=== PATIENT | female | born 1940 | race Caucasian/White ===

== ENCOUNTER 2016-12-24 16:22 | Observation (INO) | payer MEDICARE ==
[~2016-12-24] VITALS: Ht 157.5 cm; Wt 48.0 kg
[2016-12-24] VITALS (8 sets, daily range): BP systolic 97–169; BP diastolic 54–80; PULSE 90–148; RESP 12–22; TEMP 97–97.4; O2SAT 95–99
[~2016-12-24 16:22] MED LIST: ALEN70TA39 OR; ATOR10TA PO; BUPR-86 PO; DEXA2TAB10 PO; MULT1TAB; OMEP20TA PO; PERC10TA27 PO; TRAZ50TA78 PO; VENTAER INH; ZYRT10TA12 PO
[2016-12-24] MEDS ORDERED: SODIUM CHLOR 0.9% 1000 ML INJ 1,000 ML IV ONE (17:15)
[2016-12-24] MEDS ORDERED: DILTIAZEM HCL 25 MG/5 ML VIAL IV ONE (17:15)
[2016-12-24] MEDS ORDERED: SODIUM CHLORIDE 0.9% FLUSH 5 ML FLUSH IVF PRN (17:15)
[2016-12-24] MEDS ORDERED: TRAZ150T75 PO (17:32)
[2016-12-24] MEDS ORDERED: BUPR150XL PO (17:32)
[2016-12-24] MEDS ORDERED: OMEP20TA PO (17:32)
[2016-12-24] MEDS ORDERED: HYDR-3533 PO (17:32)
[2016-12-24 17:38] LABS: AUTOMATED NEUTROPHIL # 3.7 TH/MM3 (1.8-7.7); BASOPHIL % 0.2 % (0.0-2.0); EOSINOPHIL % 0.6 % (0.0-4.0); HEMO FLAGS DIFF FINAL; LYMPHOCYTE # 1.5 TH/MM3 (1.0-4.8); MEAN CELL VOLUME 97.8 FL (80.0-100.0); MEAN CORPUSCULAR HEMOGLOBIN 32.8 PG (27.0-34.0); MEAN CORPUSCULAR HGB CONC 33.6 % (32.0-36.0); MONO % 3.4 % (0.0-8.0); NEUT % 67.8 % (16.0-70.0); PLATELET COUNT 212 TH/MM3 (150-450); RED BLOOD COUNT 3.78 MIL/MM3 (4.00-5.30); RED CELL DISTRIBUTION WIDTH 17.3 % (11.6-17.2); WHITE BLOOD COUNT 5.5 TH/MM3 (4.0-11.0)
[2016-12-24 17:45] LABS: APTT (PATIENT) 27.2 SEC (24.3-30.1); PROTHROMBIN TIME - PATIENT 10.7 SEC (9.8-11.6)
[2016-12-24] MEDS ORDERED: IOHEXOL 350 MG/ML 10 ML VIAL (for RAD DIAG) IV ONE (17:55)
[2016-12-24 18:01] LABS: ANION GAP 12 MEQ/L (5-15); AST (GOT) 38 U/L (15-37); BICARBONATE 23.4 MEQ/L (21.0-32.0); BLOOD UREA NITROGEN 12 MG/DL (7-18); CHLORIDE 103 MEQ/L (98-107); GLOMERULAR FILTRATION RATE 83 ML/MIN (>89); MAGNESIUM 2.2 MG/DL (1.5-2.5); POTASSIUM 3.2 MEQ/L (3.5-5.1); SODIUM (NA) 138 MEQ/L (136-145)
[2016-12-24 18:11] LABS: ALKALINE PHOSPHATASE 359 U/L (45-117); ALT (GPT) 41 U/L (10-53); TOTAL BILIRUBIN ADULT 0.4 MG/DL (0.2-1.0)
[2016-12-24 18:14] LABS: CREATINE KINASE 61 U/L (26-192)
--- NOTE | 2016-12-24 18:16 | RADRPT ---
EXAM DATE/TIME: 12/24/2016 17:27 [facility] COMPARISON: CT PULMONARY ANGIOGRAM, December 24, 2016, 17:57. INDICATIONS : Irregular heart rate starting today MEDICAL HISTORY : None. SURGICAL HISTORY : None. ENCOUNTER: Initial ACUITY: 1 day PAIN SCORE: 0/10 LOCATION: Bilateral chest FINDINGS: The cardiac silhouette is enlarged in transverse diameter. The lungs are free of acute parenchymal op acity. No effusions are identified. [id number] is in place via right internal jugular approach wit h its tip in the superior vena cava. There is diffuse osseous sclerosis characteristic of metastatic disease. CONCLUSION: 1. Cardiomegaly. No acute pulmonary disease. 2. Diffuse osteosclerotic metastasis Logan Eng MD on December 24, 2016 at 18:10 Board Certified Radiologist. This report was verified electronically.
--- NOTE | 2016-12-24 18:24 | RADRPT ---
EXAM DATE/TIME: 12/24/2016 17:57 [facility] COMPARISON: CHEST PA & LAT, December 24, 2016, 17:27. INDICATIONS : Shortness of breath and chest pain. IV CONTRAST: 75 cc Omnipaque 350 (iohexol) IV RADIATION DOSE: 19.99 CTDIvol (mGy) MEDICAL HISTORY : Chronic obstructive pulmonary disease. Carcinoma, bone. SURGICAL HISTORY : Right-sided port-a-cath placement. ENCOUNTER: Initial ACUITY: 1 day PAIN SCALE: 5/10 LOCATION: chest TECHNIQUE: Volumetric scanning of the chest was performed using a pulmonary embolism protocol MIP images were re constructed. Using automated exposure control and adjustment of the mA and/or kV according to patien t size, radiation dose was kept as low as reasonably achievable to obtain optimal diagnostic quality images. FINDINGS: There is no evidence for PE for technique.There is 1.6 cm soft tissue density in the right cardiophre connor angle appears to be extrapleural in the epicardial fat. There are scattered areas of scarring in the lungs with a subcentimeter nodular density in the right lower lung anteromedially probably chroni c as scar as well. There is no pleural effusion. No appreciable pathological adenopathy is seen with in the mediastinum. CONCLUSION: Soft tissue density in the right cardiophrenic angle and tiny nodule right lower lobe most likely benign, however follow up is suggested with noncontrast chest CT in 6 months. Robert June MD on December 24, 2016 at 18:19 Board Certified Radiologist. This report was verified electronically.
[2016-12-24] MEDS ORDERED: ONDANSETRON HCL 4 MG/2 ML VIAL IVP PRN (19:00)
[2016-12-24] MEDS ORDERED: SENNOSIDES 8.6 MG TAB PO PRN (19:00)
[2016-12-24] MEDS ORDERED: SODIUM CHLORIDE 0.9% FLUSH 5 ML FLUSH FLUSH PRN (19:00)
[2016-12-24] MEDS ORDERED: TEMAZEPAM 15 MG CAP PO PRN (19:00)
[2016-12-24] MEDS ORDERED: BISACODYL 10 MG SUPP PR PRN (19:00)
[2016-12-24] MEDS ORDERED: MAGNESIUM HYDROXIDE SUSP 30 ML CUP PO PRN (19:00)
[2016-12-24] MEDS ORDERED: NALOXONE HCL 0.4 MG/ML AMP IV PRN (19:00)
[2016-12-24] MEDS ORDERED: ACETAMINOPHEN 325 MG TAB PO PRN (19:00)
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
[2016-12-24] MEDS ORDERED: PILL SPLITTER OTHER PRN (19:30)
[2016-12-24] MEDS ORDERED: ENOXAPARIN SODIUM 40 MG/0.4 ML SYRINGE SQ SCH (20:00)
[2016-12-24] MEDS: SODIUM CHLOR 0.9% 1000 ML INJ 1,000 ML IV SCH (20:03)
[2016-12-24] MEDS: DILTIAZEM HCL 60 MG TAB PO SCH (20:09)
[2016-12-24] MEDS: POTASSIUM CHLORIDE 10 MEQ CONTROLLED RELEASE TAB PO SCH (20:09)
[2016-12-24] MEDS: SODIUM CHLORIDE 0.9% FLUSH 5 ML FLUSH FLUSH SCH (20:09)
--- NOTE | 2016-12-24 20:14 | PD ---
HPI Chief Complaint: Cardiac Complaint Time Seen by Provider: 16:38 Travel History International Travel<30 days: No Contact w/Intl Traveler<30days: No Traveled to known affect area: No History of Present Illness HPI Patient is a 76-year-old female who is coming from her oncologist due to rapid heart rate. She says she has not had any issues with her heart in the past. She is currently being treated for metastatic bladder cancer. She said she went for a routine visit to discuss radiation of her hip when it was noticed that her heart was beating very quickly. She says she has no symptoms. She denies any chest pain, shortness of breath. She denies any fever or chills. She says she has been eating and drinking well. Her last chemotherapy was on Tuesday. PFSH Past Medical History Arthritis: Yes Depression: Yes Cancer: Yes (STAGE 4 BONE CA) Chemotherapy: Yes (Tuesday12/20/16) COPD: Yes Diabetes: No Diminished Hearing: Yes Endocrine: No Gastrointestinal Disorders: Yes (COLITIS, POLYP REMOVAL) Hepatitis: No Immune Disorder: No Musculoskeletal: No Neurologic: No Respiratory: No Thyroid Disease: No Menopausal: Yes : 3 Para: 2 Miscarriage: 1 Past Surgical History Appendectomy: Yes Eye Surgery: Yes (LASIK) Joint Replacement: No Pacemaker: No Tonsillectomy: Yes Other Surgery: Yes (FOOT SURG, BLADDER BIOPSY, RIGHT CHEST PORT PLACED) Social History Alcohol Use: No Tobacco Use: No Substance Use: No Allergies-Medications (Allergen,Severity, Reaction): Coded Allergies: Penicillin (Verified Allergy, Mild, 12/24/16) Reported Meds & Prescriptions Reported Meds & Active Scripts Active Reported Omeprazole 20 Mg Tab 20 Mg PO DAILY Trazodone (Trazodone HCl) 150 Mg Tab 150 Mg PO HS Wellbutrin Xl 24 HR (Bupropion HCl) 150 Mg Tab 150 Mg PO DAILY Lortab (Hydrocodone-Acetaminophen) 5-325 Mg Tab 1 Tab PO QID Review of Systems Except as stated in HPI: all other systems reviewed are Neg General / Constitutional: No: Fever, Chills Eyes: No: Blurred Vision HENT: No: Headaches, Lightheadedness Cardiovascular: Positive: Palpitations, No: Chest Pain or Discomfort Respiratory: No: Shortness of Breath Gastrointestinal: No: Nausea, Vomiting Musculoskeletal: No: Myalgias, Edema Skin: No Rash, No Change in Pigmentation Neurologic: No: Weakness, Dizziness Physical Exam Narrative GENERAL: Awake and alert in no acute distress. SKIN: Warm and dry. HEAD: Atraumatic. Normocephalic. EYES: Pupils equal and round. No scleral icterus. ENT: Mucous membranes pink and moist. NECK: Trachea midline. No JVD. CARDIOVASCULAR: Tachycardia. No murmur appreciated. RESPIRATORY: No accessory muscle use. Clear to auscultation. Breath sounds equal bilaterally. GASTROINTESTINAL: Abdomen soft, non-tender, nondistended. MUSCULOSKELETAL: No obvious deformities. No clubbing. No cyanosis. No edema. NEUROLOGICAL: Awake and alert. No obvious cranial nerve deficits. Motor grossly within normal limits. Normal speech. PSYCHIATRIC: Appropriate mood and affect; insight and judgment normal. Data Data Last Documented VS Vital Signs Date Time Temp Pulse Resp B/P Pulse Ox O2 Delivery O2 Flow Rate FiO2 12/24/16 18:00 96 20 113/63 98 Nasal Cannula 2.0 12/24/16 16:24 97.4 Orders Electrocardiogram (12/24/16 ) Ckmb (Isoenzyme) Profile (12/24/16 17:05) Complete Blood Count With Diff (12/24/16 17:05) Comprehensive Metabolic Panel (12/24/16 17:05) Magnesium (Mg) (12/24/16 17:05) Prothrombin Time / Inr (Pt) (12/24/16 17:05) Act Partial Throm Time (Ptt) (12/24/16 17:05) Troponin I (12/24/16 17:05) Ecg Monitoring (12/24/16 17:05) Bilateral Bp Monitoring (12/24/16 17:05) Iv Access Insert/Monitor (12/24/16 17:05) Oximetry (12/24/16 17:05) Oxygen Administration (12/24/16 17:05) Sodium Chloride 0.9% Flush (Ns Flush) (12/24/16 17:15) Chest, Pa & Lat (12/24/16 17:05) Thyroid Stimulating Hormone (12/24/16 17:05) Ct Pulmonary Angiogram (12/24/16 17:05) Sodium Chlor 0.9% 1000 Ml Inj (Ns 1000 M (12/24/16 17:15) Diltiazem Inj (Cardizem Inj) (12/24/16 17:15) Iohexol 350 Inj (Omnipaque 350 Inj) (12/24/16 17:55) Electrocardiogram (12/24/16 ) Electrocardiogram (12/24/16 16:51) Admit Order (Ed Use Only) (12/24/16 ) Labs Laboratory Tests Test 12/24/16 16:57 White Blood Count 5.5 TH/MM3 Red Blood Count 3.78 MIL/MM3 Hemoglobin 12.4 GM/DL Hematocrit 37.0 % Mean Corpuscular Volume 97.8 FL Mean Corpuscular Hemoglobin 32.8 PG Mean Corpuscular Hemoglobin 33.6 % Concent Red Cell Distribution Width 17.3 % Platelet Count 212 TH/MM3 Mean Platelet Volume 7.6 FL Neutrophils (%) (Auto) 67.8 % Lymphocytes (%) (Auto) 28.0 % Monocytes (%) (Auto) 3.4 % Eosinophils (%) (Auto) 0.6 % Basophils (%) (Auto) 0.2 % Neutrophils # (Auto) 3.7 TH/MM3 Lymphocytes # (Auto) 1.5 TH/MM3 Monocytes # (Auto) 0.2 TH/MM3 Eosinophils # (Auto) 0.0 TH/MM3 Basophils # (Auto) 0.0 TH/MM3 CBC Comment DIFF FINAL Differential Comment Prothrombin Time 10.7 SEC Prothromb Time International 1.0 RATIO Ratio Activated Partial 27.2 SEC Thromboplast Time Sodium Level 138 MEQ/L Potassium Level 3.2 MEQ/L Chloride Level 103 MEQ/L Carbon Dioxide Level 23.4 MEQ/L Anion Gap 12 MEQ/L Blood Urea Nitrogen 12 MG/DL Creatinine 0.69 MG/DL Estimat Glomerular Filtration 83 ML/MIN Rate Random Glucose 95 MG/DL Calcium Level 7.9 MG/DL Magnesium Level 2.2 MG/DL Total Bilirubin 0.4 MG/DL Aspartate Amino Transf 38 U/L (AST/SGOT) Alanine Aminotransferase 41 U/L (ALT/SGPT) Alkaline Phosphatase 359 U/L Total Creatine Kinase 61 U/L Troponin I LESS THAN 0.02 NG/ML Total Protein 7.4 GM/DL Albumin 3.3 GM/DL Thyroid Stimulating Hormone 3.240 uIU/ML 3rd Gen [facility] Medical Decision Making Medical Screen Exam Complete: Yes Emergency Medical Condition: Yes Medical Record Reviewed: Yes Interpretation(s) Original ECG showed sinus tachycardia at 109 with frequent PVCs. Shortly after , patient's heart rate increased, ECG showed a flutter with RVR. After Cardizem, patient's ECG return to sinus rhythm at a controlled rate. Differential Diagnosis Dehydration versus sepsis versus electrolyte abnormality versus PE versus atrial fibrillation Narrative Course Patient is a 76-year-old female who comes in due to rapid heart rate. Exam shows tachycardia. IV established, patient connected to the nurse monitoring. Originally patient was in sinus tach, however she quickly went into atrial flutter with RVR. Patient given IV fluids as well as 15 mg bolus of Cardizem. Her heart rate improved after medications. Labs sent show no acute abnormalities. CT of the chest shows no evidence of PE. There is a nodule noted. Patient again went into a flutter with a pulse rate in the 120s, however she quickly converted back to sinus rhythm under 100. I spoke with Dr. Boateng who will take the patient in observation for further management. Diagnosis Primary Impression: Atrial flutter with rapid ventricular response Admitting Information Admitting Physician Requests: Observation Nikia Horta MD Dec 24, 2016 20:14
[2016-12-24] MEDS ORDERED: traZODone HCL 100 MG TAB PO SCH (21:00)
[2016-12-24] MEDS ORDERED: ACETAMINOPHEN/HYDROcodone 325 MG/5 MG TAB PO SCH (21:00)
[2016-12-24 21:53] LABS: MAGNESIUM 2.2 MG/DL (1.5-2.5)
[2016-12-24 23:22] LABS: CREATINE KINASE 42 U/L (26-192)
[2016-12-25] VITALS: PULSE 90
[2016-12-25 02:47] LABS: CREATINE KINASE 46 U/L (26-192)
[2016-12-25 04:00] VITALS: BP 106/61; PULSE 94; RESP 16; TEMP 97.7; O2SAT 96
[2016-12-25] MEDS: SODIUM CHLOR 0.9% 1000 ML INJ 1,000 ML IV SCH (04:55)
[2016-12-25] MEDS: ACETAMINOPHEN/HYDROcodone 325 MG/5 MG TAB PO PRN ×2 (06:36→12:50)
[2016-12-25 08:00] VITALS: BP 115/56; PULSE 88; RESP 18; TEMP 97; O2SAT 97
[2016-12-25] MEDS ORDERED: buPROPion HCL 150 MG SUSTAINED RELEASE TAB PO SCH (09:00)
[2016-12-25] MEDS ORDERED: PANTOPRAZOLE SOD 20 MG DELAYED RELEASE TAB PO SCH (09:00)
[2016-12-25] MEDS: DILTIAZEM HCL 60 MG TAB PO SCH ×2 (09:02→12:49)
[2016-12-25] MEDS: POTASSIUM CHLORIDE 10 MEQ CONTROLLED RELEASE TAB PO SCH (09:04)
[2016-12-25] MEDS: SODIUM CHLORIDE 0.9% FLUSH 5 ML FLUSH FLUSH SCH (09:04)
[2016-12-25 09:13] VITALS: PULSE 88
[2016-12-25 10:07] LABS: AUTOMATED NEUTROPHIL # 1.9 TH/MM3 (1.8-7.7); BASOPHIL % 0.6 % (0.0-2.0); EOSINOPHIL % 0.8 % (0.0-4.0); HEMATOCRIT 30.2 % (35.0-46.0); HEMO FLAGS DIFF FINAL; LYMPH % 32.6 % (9.0-44.0); MEAN CELL VOLUME 96.5 FL (80.0-100.0); MEAN CORPUSCULAR HEMOGLOBIN 33.5 PG (27.0-34.0); MEAN CORPUSCULAR HGB CONC 34.7 % (32.0-36.0); MONO % 3.3 % (0.0-8.0); NEUT % 62.7 % (16.0-70.0); PLATELET COUNT 136 TH/MM3 (150-450); RED BLOOD COUNT 3.13 MIL/MM3 (4.00-5.30); RED CELL DISTRIBUTION WIDTH 16.8 % (11.6-17.2)
[2016-12-25 10:15] LABS: BICARBONATE 23.8 MEQ/L (21.0-32.0); HDL CHOLESTEROL 72.8 MG/DL (40.0-60.0); POTASSIUM 3.2 MEQ/L (3.5-5.1)
[2016-12-25 10:47] LABS: CALCIUM-PROTEIN CORRECTED 7.3 MG/DL (8.5-10.1)
[2016-12-25 12:00] VITALS: BP 117/55; PULSE 90; RESP 18; TEMP 98; O2SAT 97
[2016-12-25] MEDS ORDERED: CALCIUM GLUCONATE INJ 1 GM in SODIUM CHLORIDE 0.9% INJ 100 ML IV ONE (13:00)
[2016-12-25] MEDS ORDERED: DILTIAZEM-CD 240 MG CAP ER PO SCH (15:00)
[2016-12-25] MEDS ORDERED: CARD240C6 PO (15:01)
[2016-12-25] MEDS ORDERED: ASPI81TA11 PO (15:01)
[2016-12-25] MEDS ORDERED: POTA-243 PO (15:01)
[2016-12-25 15:29] VITALS: PULSE 108
--- NOTE | 2016-12-25 19:05 | HHI.PR ---
Subjective Interval History Alert, oriented, denies any complaints, wants to go home, insisting on going home regardless of any further workup, ambulating around the steinberg with heart rate hovering around 100-110 Review of Systems Constitutional Constitutional Remarks 10 systems reviewed and otherwise negative Vitals/Results Intake & Output 12/24/16 12/24/16 12/25/16 15:00 23:00 07:00 Intake Total 1240 ml Balance 1240 ml Intake Oral 240 ml IV Total 1000 ml # Voids 1 Vital Signs Vital Signs Date Time Temp Pulse Resp B/P Pulse Ox O2 Delivery O2 Flow Rate FiO2 12/25/16 15:29 108 12/25/16 12:00 98.0 90 18 117/55 97 12/25/16 09:13 88 12/25/16 08:00 97.0 88 18 115/56 97 12/25/16 04:00 97.7 94 16 106/61 96 12/25/16 00:00 90 12/24/16 23:00 97.0 99 18 118/65 95 12/24/16 22:26 18 12/24/16 22:21 90 18 97/54 99 CBC/BMP: 12/25/16 0846 12/25/16 0846 Lab Results Laboratory Tests Test 12/24/16 12/24/16 12/25/16 12/25/16 19:50 21:37 01:00 08:46 Phosphorus Level 1.8 MG/DL Magnesium Level 2.2 MG/DL Total Creatine Kinase 42 U/L 46 U/L Troponin I LESS THAN 0.02 LESS THAN 0.02 NG/ML NG/ML White Blood Count 3.0 TH/MM3 Red Blood Count 3.13 MIL/MM3 Hemoglobin 10.5 GM/DL Hematocrit 30.2 % Mean Corpuscular Volume 96.5 FL Mean Corpuscular Hemoglobin 33.5 PG Mean Corpuscular Hemoglobin 34.7 % Concent Red Cell Distribution Width 16.8 % Platelet Count 136 TH/MM3 Mean Platelet Volume 7.5 FL Neutrophils (%) (Auto) 62.7 % Lymphocytes (%) (Auto) 32.6 % Monocytes (%) (Auto) 3.3 % Eosinophils (%) (Auto) 0.8 % Basophils (%) (Auto) 0.6 % Neutrophils # (Auto) 1.9 TH/MM3 Lymphocytes # (Auto) 1.0 TH/MM3 Monocytes # (Auto) 0.1 TH/MM3 Eosinophils # (Auto) 0.0 TH/MM3 Basophils # (Auto) 0.0 TH/MM3 CBC Comment DIFF FINAL Differential Comment Sodium Level 140 MEQ/L Potassium Level 3.2 MEQ/L Chloride Level 108 MEQ/L Carbon Dioxide Level 23.8 MEQ/L Anion Gap 8 MEQ/L Blood Urea Nitrogen 5 MG/DL Creatinine 0.43 MG/DL Estimat Glomerular Filtration 144 ML/MIN Rate Random Glucose 100 MG/DL Calcium Level 6.9 MG/DL Protein Corrected Calcium 7.3 MG/DL Total Protein 6.4 GM/DL Triglycerides Level 103 MG/DL Cholesterol Level 201 MG/DL LDL Cholesterol 108 MG/DL HDL Cholesterol 72.8 MG/DL Cholesterol/HDL Ratio 2.76 RATIO Physical Exam General General Appearance: Well Developed, No Acute Distress, Comfortable, Malnourished Eyes Eye Exam: Pupils Reactive Ears & Nose Ears & Nose Exam: Nasal Mucosa [place] Throat Throat Exam: Oral Mucosa [place] & Moist Neck Neck Exam: Trachea Midline Pulmonary Resp Exam: Breath Sounds Equal Cardiology CV Exam: Irregular Gastrointestinal/Abdomen GI Exam: Non-Tender, Bowel Sounds Present Musculoskeletal MS Exam: Normal Gait, Normal Tone Integumentary Skin Exam: Warm, Dry Neurologic Neuro Exam: Awake, Oriented, Speech Clear, Moving All Extremities VTE Prophylaxis VTE Prophylaxis Meds: Heparin Assessment/Plan Assessment/Plan Assessment Narrow complex tachycardia, improved Hypokalemia, improved Metastatic bladder cancer On radiation therapy Question COPD Right lower lobe nodule Diffuse osteosclerotic bone metastases Cardiomegaly Management Cardizem extended release 240 mg daily Okay to discharge home Outpatient 2-dimensional echocardiogram Consult cardiology as outpatient Continue home medications Discussed with patient Discussed with nurse Discharge Minutes: 40 Jeff Mcdonald MD Dec 25, 2016 19:05
--- NOTE | 2016-12-26 12:17 | EKG ---
Date Performed: 12/24/2016 Time Performed: 16:36:58 PTAGE: 76 years EKG: SINUS TACHYCARDIA WITH OCCASIONAL SUPRAVENTRICULAR PREMATURE COMPLEXES When compared to pre vious tracing, occassional premature atrial And ventricular contractions are seen. ABNORMAL RHYTHM EC G PREVIOUS TRACING : 04/06/2010 18.10 DOCTOR: Sam Huizar Interpretating Date/Time 12/26/2016 12:16:41
--- NOTE | 2016-12-26 12:19 | EKG ---
Date Performed: 12/24/2016 Time Performed: 16:51:27 PTAGE: 76 years EKG: ATRIAL FLUTTER/TACHYCARDIA WITH RAPID VENTRICULAR RESPONSE When compared to previous tracin g, there is now evidence of a Supraventricular tachycardia, most likely atrial flutter with 2:1 Heart block. ABNORMAL RHYTHM ECG PREVIOUS TRACING : 12/24/2016 16.36 DOCTOR: Sam Huizar Interpretating Date/Time 12/26/2016 12:18:47
--- NOTE | 2016-12-26 12:22 | EKG ---
Date Performed: 12/24/2016 Time Performed: 18:30:03 PTAGE: 76 years EKG: SINUS TACHYCARDIA When compared to previous tracing, the supraventricular Tachycardia is no longer present. ABNORMAL RHYTHM ECG PREVIOUS TRACING : 12/24/2016 16.51.27 DOCTOR: Sam Huizar Interpretating Date/Time 12/26/2016 12:21:38
--- NOTE | 2016-12-26 12:25 | EKG ---
Date Performed: 12/24/2016 Time Performed: 20:18:34 PTAGE: 76 years EKG: SINUS TACHYCARDIA When compared to previous tracing, there is now evidence a Supraventricul ar tachycardia verses sinus tachycardia. Clinical correlation is recommended. ABNORMAL RHYTHM ECGPREV IOUS TRACING : 12/24/2016 18.30 DOCTOR: Sam Huizar Interpretating Date/Time 12/26/2016 12:23:05
== END 2016-12-25 17:14 | disposition home or self-care (01) ==
LOC: NEPC 16:22 → NEDA 18:56 → HOCB 23:25
PROVIDERS: ADMIT Specialist; ATTEND Specialist
DX: I48.92 Unspecified atrial flutter (principal); I51.7 Cardiomegaly; C79.51 Secondary malignant neoplasm of bone; C67.9 Malignant neoplasm of bladder, unspecified; E87.6 Hypokalemia; E78.5 Hyperlipidemia, unspecified; J44.9 Chronic obstructive pulmonary disease, unspecified; H91.90 Unspecified hearing loss, unspecified ear; Z79.01 Long term (current) use of anticoagulants
CPT/HCPCS: 71020; 71275; 80048; 80053; 80061; 82550; 83735; 84100; 84155; 84443; 84484; 85025; 85610; 85730; 93005; 96361; 96374; 99285; G0378; J0610; J1650; J7030; Q9967; 99212; G0463

== ENCOUNTER 2017-02-02 10:28 | Emergency (ER) | payer MEDICARE ==
[~2017-02-02] VITALS: Ht 149.9 cm; Wt 42.0 kg
[~2017-02-02 10:28] MED LIST changes: -ALEN70TA39 OR; +ASPI81TA11 PO; -ATOR10TA PO; -BUPR-86 PO; +BUPR150XL PO; +CARD240C6 PO; -DEXA2TAB10 PO; +HYDR-3533 PO; -MULT1TAB; -PERC10TA27 PO; +POTA-243 PO; +TRAZ150T75 PO; -TRAZ50TA78 PO; -VENTAER INH; -ZYRT10TA12 PO
[2017-02-02 10:30] VITALS: BP 105/61; PULSE 98; RESP 18; TEMP 98.4; O2SAT 93
[2017-02-02 10:36] VITALS: BP_SYST 105; PULSE 100; RESP 18; O2SAT 96
[2017-02-02] MEDS ORDERED: METO25TA6 PO (10:43)
[2017-02-02] MEDS ORDERED: SODIUM CHLOR 0.9% 1000 ML INJ 1,000 ML IV SCH (11:01)
[2017-02-02] MEDS ORDERED: SODIUM CHLORIDE 0.9% FLUSH 5 ML FLUSH IVF PRN (11:15)
--- NOTE | 2017-02-02 11:31 | PD ---
HPI Chief Complaint: Respiratory Distress Time Seen by Provider: 10:48 Travel History International Travel<30 days: No Contact w/Intl Traveler<30days: No Traveled to known affect area: No History of Present Illness HPI The patient is a 76-year-old female who presents to the emergency department for generalized weakness. The patient has a history of stage IV bladder cancer and is currently undergoing radiation therapy by Dr. vergara. The patient is undergone 9 out of 10 days of radiation therapy, however, was too weak to go to treatment today. The patient also states she was followed by her oncologist, Dr. Burt, and had chemotherapy several weeks ago. The patient states she was going to be restarted on chemotherapy a week from Tuesday. The patient states she lives at home with her who helps microwave meals and also has a neighbor who helps bring meals, however, the patient is had decreased mobility and was unable to get out of bed into the bathroom this morning. She does note a 10 pound weight loss over the last month with increasing generalized weakness. She also complains of mild shortness of breath and nausea, but denies any chest pain, vomiting, or abdominal pain. Symptoms are moderate, there are no current alleviating or exacerbating factors. PFSH Past Medical History Arthritis: Yes Depression: Yes Cancer: Yes (STAGE 4 BONE CA) Chemotherapy: Yes (2 WEEKS AGO ) COPD: Yes Diabetes: No Diminished Hearing: Yes Endocrine: No Gastrointestinal Disorders: Yes (COLITIS, POLYP REMOVAL) Hepatitis: No Immune Disorder: No Neurologic: No Psychiatric: No Respiratory: No Radiation Therapy: Yes (radiation july 2016, ) Thyroid Disease: No Menopausal: Yes : 3 Para: 2 Miscarriage: 1 Past Surgical History Appendectomy: Yes Eye Surgery: Yes (LASIK) Joint Replacement: No Pacemaker: No Tonsillectomy: Yes Other Surgery: Yes (FOOT SURG, BLADDER BIOPSY, RIGHT CHEST PORT PLACED) Social History Alcohol Use: No Tobacco Use: No Substance Use: No Allergies-Medications (Allergen,Severity, Reaction): Coded Allergies: Penicillin (Verified Allergy, Mild, 02/02/17) Reported Meds & Prescriptions Reported Meds & Active Scripts Active Aspirin EC (Aspirin) 81 Mg Tabdr 81 Mg PO DAILY Reported Metoprolol Succinate ER 24 HR (Metoprolol Succinate) 25 Mg Tab Unknown Dose PO DAILY Trazodone (Trazodone HCl) 150 Mg Tab 150 Mg PO HS Wellbutrin Xl 24 HR (Bupropion HCl) 150 Mg Tab 150 Mg PO DAILY Lortab (Hydrocodone-Acetaminophen) 5-325 Mg Tab 1 Tab PO QID Review of Systems Except as stated in HPI: all other systems reviewed are Neg General / Constitutional: Positive: Weight Loss, No: Fever Cardiovascular: No: Chest Pain or Discomfort Respiratory: Positive: Shortness of Breath Gastrointestinal: Positive: Nausea, Loss of Appetite, No: Vomiting, Diarrhea, Abdominal Pain Musculoskeletal: Positive: Weakness Neurologic: Positive: Weakness Physical Exam Narrative GENERAL: Awake, alert, 76-year-old female who appears her stated age and is slightly cachectic. SKIN: Warm and dry. HEAD: Atraumatic. Normocephalic. EYES: Pupils equal and round. No injection or drainage. ENT: No nasal bleeding or discharge. Slightly dry mucous membranes. NECK: Trachea midline. No JVD. CARDIOVASCULAR: Regular, tachycardic with a heart rate of 102. RESPIRATORY: No accessory muscle use. Clear to auscultation. Breath sounds equal bilaterally. GASTROINTESTINAL: Abdomen soft, radiation markers noted on the abdomen. MUSCULOSKELETAL: No obvious deformities. No clubbing. No cyanosis. No edema. NEUROLOGICAL: Awake and alert. No obvious cranial nerve deficits. Motor grossly within normal limits. Normal speech. PSYCHIATRIC: Appropriate mood and affect; insight and judgment normal. Data Data Last Documented VS Vital Signs Date Time Temp Pulse Resp B/P Pulse Ox O2 Delivery O2 Flow Rate FiO2 02/02/17 10:36 100 18 105/ 96 Nasal Cannula 02/02/17 10:30 98.4 Orders Complete Blood Count With Diff (02/02/17 11:01) Comprehensive Metabolic Panel (02/02/17 11:01) Creatine Kinase (Cpk) (02/02/17 11:01) Thyroid Stimulating Hormone (02/02/17 11:01) Urinalysis - C+S If Indicated (02/02/17 11:01) Chest, Single Ap (02/02/17 11:01) Blood Glucose (02/02/17 11:01) Ecg Monitoring (02/02/17 11:01) Iv Access Insert/Monitor (02/02/17 11:01) Oximetry (02/02/17 11:01) Sodium Chloride 0.9% Flush (Ns Flush) (02/02/17 11:15) Sodium Chlor 0.9% 1000 Ml Inj (Ns 1000 M (02/02/17 11:01) Urine Culture (02/02/17 11:39) Labs Laboratory Tests Test 02/02/17 02/02/17 11:25 11:39 White Blood Count 6.4 TH/MM3 Red Blood Count 3.21 MIL/MM3 Hemoglobin 10.3 GM/DL Hematocrit 30.1 % Mean Corpuscular Volume 93.8 FL Mean Corpuscular Hemoglobin 32.1 PG Mean Corpuscular Hemoglobin 34.2 % Concent Red Cell Distribution Width 19.0 % Platelet Count 79 TH/MM3 Mean Platelet Volume 8.4 FL Neutrophils (%) (Auto) 77.1 % Lymphocytes (%) (Auto) 14.4 % Monocytes (%) (Auto) 7.7 % Eosinophils (%) (Auto) 0.4 % Basophils (%) (Auto) 0.4 % Neutrophils # (Auto) 5.0 TH/MM3 Lymphocytes # (Auto) 0.9 TH/MM3 Monocytes # (Auto) 0.5 TH/MM3 Eosinophils # (Auto) 0.0 TH/MM3 Basophils # (Auto) 0.0 TH/MM3 CBC Comment AUTO DIFF Differential Comment AUTO DIFF CONFIRMED Platelet Estimate LOW Platelet Morphology Comment NORMAL Sodium Level 138 MEQ/L Potassium Level 3.6 MEQ/L Chloride Level 105 MEQ/L Carbon Dioxide Level 22.3 MEQ/L Anion Gap 11 MEQ/L Blood Urea Nitrogen 9 MG/DL Creatinine 0.65 MG/DL Estimat Glomerular Filtration 89 ML/MIN Rate Random Glucose 143 MG/DL Calcium Level 7.9 MG/DL Total Bilirubin 0.4 MG/DL Aspartate Amino Transf 51 U/L (AST/SGOT) Alanine Aminotransferase 19 U/L (ALT/SGPT) Alkaline Phosphatase 426 U/L Total Creatine Kinase 126 U/L Total Protein 6.8 GM/DL Albumin 2.7 GM/DL Thyroid Stimulating Hormone 2.210 uIU/ML 3rd Gen Urine Color YELLOW Urine Turbidity HAZY Urine pH 6.0 Urine Specific [place] 1.022 Urine Protein 30 mg/dL Urine Glucose (UA) NEG mg/dL Urine Ketones NEG mg/dL Urine Occult Blood MOD Urine Nitrite NEG Urine Bilirubin NEG Urine Urobilinogen 2.0 MG/DL Urine Leukocyte Esterase SMALL Urine RBC /hpf Urine WBC 22 /hpf Urine Squamous Epithelial 1 /hpf Cells Urine Mucus FEW /lpf Microscopic Urinalysis Comment CATH-CULTURE IND MDM Medical Decision Making Medical Screen Exam Complete: Yes Emergency Medical Condition: Yes Medical Record Reviewed: Yes Interpretation(s) EKG reveals sinus tachycardia with a heart rate of 102. Differential Diagnosis Differential diagnosis includes generalized weakness, dehydration, hyponatremia , hypocalcemia, hypercalcemia, pneumonia, UTI, metastatic cancer. Narrative Course The patient's port was accessed, labs are drawn and sent, and the patient was placed on cardiac telemetry monitoring and continuous pulse oximetry monitoring. EKG was ordered and interpreted. Chest x-ray was obtained. UA was sent to lab. The patient was administered IV fluids. Chest x-rays unremarkable. UA reveals hematuria with a few white cells and bacteria, unsure if this is secondary to bladder cancer versus UTI. Sodium is normal. Alkaline phosphatase is slightly high, however, patient is having radiation therapy for known bone metastasis. I do discussion with the patient regarding 23 hour observation versus discharge home with home health care. The patient would prefer home health care for possible to avoid admission. Therefore, I discussed the patient with case management who recommended a [id number] for home health care, PT, and home health aide. Therefore, home health care/PT/ home health aide nursing was ordered via facial 8. The patient was administered Cipro 4 mg intravenously will be discharged home on Cipro 500 mg twice a day for 3 days. 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 Home health care as directed. Follow-up with her primary physician. Return if symptoms worsen or progress. Med/Other Pt SpecificInfo: Prescription(s) given Scripts Ciprofloxacin (Cipro)500 Mg [id number] Mg PO BID 3 Days Ref 0 Prov:Ezekiel Augustine MD 02/02/17 Disposition: DISCHARGE HOME Condition: Stable Ezekiel Augustine MD Feb 02, 2017 11:31
[2017-02-02 11:39] LABS: BASOPHIL % 0.4 % (0.0-2.0); EOSINOPHIL % 0.4 % (0.0-4.0); HEMATOCRIT 30.1 % (35.0-46.0); LYMPH % 14.4 % (9.0-44.0); LYMPHOCYTE # 0.9 TH/MM3 (1.0-4.8); MEAN CELL VOLUME 93.8 FL (80.0-100.0); MEAN CORPUSCULAR HEMOGLOBIN 32.1 PG (27.0-34.0); MEAN CORPUSCULAR HGB CONC 34.2 % (32.0-36.0); MONO % 7.7 % (0.0-8.0); NEUT % 77.1 % (16.0-70.0); PLATELET COUNT 79 TH/MM3 (150-450); RED BLOOD COUNT 3.21 MIL/MM3 (4.00-5.30); WHITE BLOOD COUNT 6.4 TH/MM3 (4.0-11.0)
[2017-02-02 11:44] LABS: HEMO FLAGS AUTO DIFF
--- NOTE | 2017-02-02 11:51 | RADRPT ---
EXAM DATE/TIME: 02/02/2017 11:22 [facility] COMPARISON: CHEST PA & LAT, December 24, 2016, 17:27. INDICATIONS : Short of Breath MEDICAL HISTORY : Chronic obstructive pulmonary disease. Carcinoma, bone. SURGICAL HISTORY : Right-sided port-a-cath placement ENCOUNTER: Initial ACUITY: 1 day PAIN SCORE: 0/10 LOCATION: Bilateral chest FINDINGS: The lungs appear hyperinflated. There is mild increased density medial left base. Right lung is clear . The cardiomediastinal contours are unremarkable. There is a CT compatible [id number] in place f rom the right internal jugular approach. There is a dextrocurvature of the thoracic spine. CONCLUSION: Hyperinflated lungs likely from COPD. There is mild atelectasis or consolidation at the medial left base. Henri Escobedo MD on February 02, 2017 at 11:48 Board Certified Radiologist. This report was verified electronically.
[2017-02-02 11:59] LABS: ALT (GPT) 19 U/L (10-53); ANION GAP 11 MEQ/L (5-15); AST (GOT) 51 U/L (15-37); BICARBONATE 22.3 MEQ/L (21.0-32.0); BLOOD UREA NITROGEN 9 MG/DL (7-18); CHLORIDE 105 MEQ/L (98-107); GLOMERULAR FILTRATION RATE 89 ML/MIN (>89); POTASSIUM 3.6 MEQ/L (3.5-5.1); SODIUM (NA) 138 MEQ/L (136-145)
[2017-02-02 12:01] LABS: BLOOD, URINE MOD (NEG); GLUCOSE,URINE NEG (NEG); KETONE, URINE NEG (NEG); MUCUS URINE FEW /lpf (OCC); NITRITE,URINE NEG (NEG); SQUAMOUS EPITHELIAL CELL URINE 1 /hpf (0-5); URINE COLOR YELLOW (YELLW/STRAW)
[2017-02-02 12:02] LABS: COMMENT (UR) CATH-CULTURE IND; CULTURE IF INDICATED CATH CULTURE IND
[2017-02-02 12:09] LABS: ALKALINE PHOSPHATASE 426 U/L (45-117); CREATINE KINASE 126 U/L (26-192); TOTAL BILIRUBIN ADULT 0.4 MG/DL (0.2-1.0)
[2017-02-02 12:19] LABS: PLATELET ESTIMATE SMEAR LOW (NORMAL); PLATELET MORPHOLOGY NORMAL (NORMAL); SCAN/DIFF AUTO DIFF CONFIRMED
[2017-02-02] MEDS ORDERED: CIPR-9 PO (12:26)
--- NOTE | 2017-02-02 12:37 | HHI.FF ---
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 My clinical findings support the need for the requested home health care services because: Ltd mobility - disease progression Deconditioned w/ increased weakness I certify that my clinical findings support that this patient is homebound because: Need for psychosocial assistance Ezekiel Augustine MD Feb 02, 2017 12:37
[2017-02-02 13:00] VITALS: O2SAT 88
[2017-02-02] MEDS ORDERED: OXYGENTANK NAS.CANULA (13:16)
[2017-02-02 13:27] VITALS: O2SAT 96
[2017-02-02] MEDS ORDERED: ACETAMINOPHEN/HYDROcodone 325 MG/5 MG TAB PO ONE (15:15)
--- NOTE | 2017-02-03 14:11 | EKG ---
Date Performed: 02/02/2017 Time Performed: 10:32:34 PTAGE: 76 years EKG: SINUS TACHYCARDIA ABNORMAL RHYTHM ECG PREVIOUS TRACING : 12/24/2016 20.18 DOCTOR: Garth Kapoor Interpretating Date/Time 02/03/2017 14:01:40
== END 2017-02-02 16:02 | disposition home or self-care (01) ==
LOC: NEPE 10:28
DX: R53.1 Weakness (principal); C67.9 Malignant neoplasm of bladder, unspecified; C79.51 Secondary malignant neoplasm of bone; N30.01 Acute cystitis with hematuria; R06.02 Shortness of breath; R11.0 Nausea; R94.31 Abnormal electrocardiogram [ECG] [EKG]; H91.90 Unspecified hearing loss, unspecified ear; Z87.39 Personal history of other diseases of the musculoskeletal system and connective tissue; Z86.59 Personal history of other mental and behavioral disorders; Z87.09 Personal history of other diseases of the respiratory system; Z87.19 Personal history of other diseases of the digestive system
CPT/HCPCS: 71010; 80053; 81001; 82550; 84443; 85025; 87086; 93005; 94620; 99285; J7030

== ENCOUNTER 2017-02-10 15:33 | Inpatient (IN) | payer MEDICARE ==
[~2017-02-10] VITALS: Ht 147.3 cm; Wt 48.0 kg
[2017-02-10] VITALS (7 sets, daily range): BP systolic 109–126; BP diastolic 55–86; PULSE 96–126; RESP 16–42; TEMP 98.2–98.7; O2SAT 74–95
[~2017-02-10 15:33] MED LIST changes: -CARD240C6 PO; +CIPR-9 PO; +METO25TA6 PO; -OMEP20TA PO; +OXYGENTANK NAS.CANULA; -POTA-243 PO
[2017-02-10] MEDS ORDERED: SODIUM CHLORID 0.9% 500 ML INJ 500 ML IV ONE (16:00)
--- NOTE | 2017-02-10 16:08 | PD ---
HPI Chief Complaint: Respiratory Distress Time Seen by Provider: 15:38 Travel History International Travel<30 days: No Contact w/Intl Traveler<30days: No Traveled to known affect area: No History of Present Illness HPI Is a 76 year-old woman with a history of metastatic bladder cancer with bony metastasis to the left hip who presents to the emergency department with weakness and increased heart rate. She is a history of intermittent A. fib flutter in the past. She is on metoprolol 25 mg extended release daily. She was recently changed to second line chemotherapy for progression of her disease. She also just completed 9 days of radiation therapy to the left hip. She could not complete the final day because she was feeling too weak and sick and was seen in the emergency department at that time, a few days ago. At that point labs are unremarkable. She was started on oxygen at home several days ago. She is continued on oxygen at home but presents back to the emergency department today when she developed increased heart rate noted by her home health nurse and was sent to the emergency department. She states since being home she actually has felt improved over the past several days ago she still states she has trouble with intermittent elevated heart rate. No fevers or chills. No other complaints. On EMS arrival heart rate was in the 150s, improved to the 130s after 500 mL's of fluid. History Past Medical History Narrative Medical Metastatic bladder cancer Hyperlipidemia Hard of hearing Tetanus Vaccination: < 5 Years Influenza Vaccination: No Menopausal: Yes : 3 Para: 2 Social History Alcohol Use: No Tobacco Use: No Allergies-Medications (Allergen,Severity, Reaction): Coded Allergies: Penicillin (Verified Allergy, Mild, 02/10/17) Reported Meds & Prescriptions Reported Meds & Active Scripts Active Oxygen tank (Oxygen) 1 Ea Tank 2 Liter RUBIN.CANULA CONTINUOUS Oxygen Concentrator Portable Gaseous 2 L/min via Nasal Cannula Continuous For 99 months Aspirin EC (Aspirin) 81 Mg Tabdr 81 Mg PO DAILY Reported Metoprolol Succinate ER 24 HR (Metoprolol Succinate) 25 Mg Tab Unknown Dose PO DAILY Trazodone (Trazodone HCl) 150 Mg Tab 150 Mg PO HS Wellbutrin Xl 24 HR (Bupropion HCl) 150 Mg Tab 150 Mg PO DAILY Lortab (Hydrocodone-Acetaminophen) 5-325 Mg Tab 1 Tab PO QID Review of Systems Except as stated in HPI: all other systems reviewed are Neg Physical Exam Narrative GENERAL: 76 year-old woman, elderly appearing, no acute distress. SKIN: Warm and dry. HEAD: Atraumatic. Normocephalic. EYES: Pupils equal and round. No scleral icterus. No injection or drainage. ENT: No nasal bleeding or discharge. Mucous membranes pink and moist. NECK: Trachea midline. No JVD. CARDIOVASCULAR: Heart rate rapid but regular. No murmurs. RESPIRATORY: No accessory muscle use. Clear to auscultation. Breath sounds equal bilaterally. GASTROINTESTINAL: Abdomen soft, non-tender, nondistended. Hepatic and splenic margins not palpable. MUSCULOSKELETAL: No obvious deformities. No edema. Decreased muscle bulk. NEUROLOGICAL: Awake and alert. No obvious cranial nerve deficits. Motor grossly within normal limits. Normal speech. PSYCHIATRIC: Appropriate mood and affect; insight and judgment normal. Data Data Last Documented VS Vital Signs Date Time Temp Pulse Resp B/P Pulse Ox O2 Delivery O2 Flow Rate FiO2 02/10/17 18:00 126 36 126/58 95 Nasal Cannula 4 02/10/17 15:49 98.6 Orders Electrocardiogram (02/10/17 ) Complete Blood Count With Diff (02/10/17 16:00) Comprehensive Metabolic Panel (02/10/17 16:00) Act Partial Throm Time (Ptt) (02/10/17 16:00) Prothrombin Time / Inr (Pt) (02/10/17 16:00) Iv Access Insert/Monitor (02/10/17 16:00) Chest, Single Ap (02/10/17 ) Sodium Chlorid 0.9% 500 Ml Inj (Ns 500 M (02/10/17 16:00) Acetamin-Hydrocod 325-5 Mg ([place] 5-325 (02/10/17 17:30) Type And Screen (02/10/17 17:29) Red Blood Cells (Rbc) (02/10/17 17:29) Blood Product Administration .UPON TRANSFUSION (02/10/17 17:29) Sodium Chlor 0.9% 250 Ml Inj (Ns 250 Ml (02/10/17 17:30) Admit Order (Ed Use Only) (02/10/17 ) Labs Laboratory Tests Test 02/10/17 02/10/17 02/10/17 16:05 17:40 18:04 White Blood Count 4.7 TH/MM3 Red Blood Count 2.16 MIL/MM3 Hemoglobin 6.9 GM/DL Hematocrit 19.8 % Mean Corpuscular Volume 91.7 FL Mean Corpuscular Hemoglobin 31.9 PG Mean Corpuscular Hemoglobin 34.8 % Concent Red Cell Distribution Width 19.6 % Platelet Count 19 TH/MM3 Mean Platelet Volume 9.7 FL Neutrophils (%) (Auto) 70.4 % Lymphocytes (%) (Auto) 18.7 % Monocytes (%) (Auto) 10.1 % Eosinophils (%) (Auto) 0.3 % Basophils (%) (Auto) 0.5 % Neutrophils # (Auto) 3.3 TH/MM3 Lymphocytes # (Auto) 0.9 TH/MM3 Monocytes # (Auto) 0.5 TH/MM3 Eosinophils # (Auto) 0.0 TH/MM3 Basophils # (Auto) 0.0 TH/MM3 CBC Comment AUTO DIFF Differential Total Cells 100 Counted Neutrophils % (Manual) 61 % Band Neutrophils % 15 % Lymphocytes % 13 % Monocytes % 5 % Eosinophils % 2 % Neutrophils # (Manual) 3.8 TH/MM3 Metamyelocytes 1 % Myelocytes 2 % Promyelocytes 1 % Differential Comment FINAL DIFF MANUAL Platelet Estimate RARE Platelet Morphology Comment ENLARGED Tear Drop Cells 1+ Acanthocytes OCC Keratocytes OCC Prothrombin Time 12.7 SEC Prothromb Time International 1.1 RATIO Ratio Activated Partial 28.2 SEC Thromboplast Time Sodium Level 138 MEQ/L Potassium Level 3.2 MEQ/L Chloride Level 107 MEQ/L Carbon Dioxide Level 21.9 MEQ/L Anion Gap 9 MEQ/L Blood Urea Nitrogen 9 MG/DL Creatinine 0.28 MG/DL Estimat Glomerular Filtration 235 ML/MIN Rate Random Glucose 83 MG/DL Calcium Level 7.5 MG/DL Total Bilirubin 0.6 MG/DL Aspartate Amino Transf 66 U/L (AST/SGOT) Alanine Aminotransferase 13 U/L (ALT/SGPT) Alkaline Phosphatase 440 U/L Total Protein 5.9 GM/DL Albumin 2.5 GM/DL Blood Type O POSITIVE O POSITIVE Antibody Screen NEGATIVE Crossmatch Leukocyte-Reduced Red Blood Cells Blood Bank Comment [facility] Medical Decision Making Medical Screen Exam Complete: Yes Emergency Medical Condition: Yes Interpretation(s) My review of EKG: Sinus tachycardia rate 102, normal axis, normal intervals, no ischemia. LABS: CBC remarkable for moderate anemia. Platelet count also 19,000. CMP generally unremarkable. Alkaline phosphatase is elevated. Coags unremarkable Chest x-ray stable. Some increased interstitial markings bilaterally. No acute focal alveolar consolidation or pulmonary edema. Differential Diagnosis A flutter, atrial tachycardia, sinus tachycardia, dehydration, anemia, other Narrative Course Medical decision making INITIAL: 76-year-old woman who presents to the emergency department with intermittent elevated heart rate, likely atrial tachycardia or atrial flutter, with history of the same. She takes metoprolol for this. She recently completed radiation therapy. She is very pale appearing and may be anemic. We' ll check labs, x-ray, monitor, reassess. FINAL: Patient with irregular abnormal heart rhythm, suspect a primary arrhythmia. This could be exacerbated by the patient's marked anemia. Anemia possibly related to chemotherapy or radiation therapy but not clearly so. I spoke with Dr. Burt, who will consult on patient. Spoke with and wilfredo, will admit patient. Diagnosis Primary Impression: Atrial flutter with rapid ventricular response Additional Impressions: Anemia Hypoxia Angelo Douglas MD Feb 10, 2017 16:08
[2017-02-10 16:32] LABS: AUTOMATED NEUTROPHIL # 3.3 TH/MM3 (1.8-7.7); BASOPHIL % 0.5 % (0.0-2.0); EOSINOPHIL % 0.3 % (0.0-4.0); LYMPH % 18.7 % (9.0-44.0); LYMPHOCYTE # 0.9 TH/MM3 (1.0-4.8); MEAN CELL VOLUME 91.7 FL (80.0-100.0); MEAN CORPUSCULAR HEMOGLOBIN 31.9 PG (27.0-34.0); MEAN CORPUSCULAR HGB CONC 34.8 % (32.0-36.0); MONO % 10.1 % (0.0-8.0); NEUT % 70.4 % (16.0-70.0); RED BLOOD COUNT 2.16 MIL/MM3 (4.00-5.30); RED CELL DISTRIBUTION WIDTH 19.6 % (11.6-17.2); WHITE BLOOD COUNT 4.7 TH/MM3 (4.0-11.0)
[2017-02-10 16:36] LABS: HEMO FLAGS AUTO DIFF
--- NOTE | 2017-02-10 16:37 | RADRPT ---
EXAM DATE/TIME: 02/10/2017 16:09 [facility] COMPARISON: CHEST SINGLE AP, February 02, 2017, 11:22. INDICATIONS : Short of Breath. MEDICAL HISTORY : Chronic obstructive pulmonary disease. Carcinoma, bone. SURGICAL HISTORY : Right-sided port-a-cath placement ENCOUNTER: Initial ACUITY: 2 weeks PAIN SCORE: 0/10 LOCATION: Bilateral chest FINDINGS: A right internal jugular [id number] has its tip in the superior vena cava. There is no pneumothora x. Mild increased interstitial markings are again noted and stable. The heart is stable. No acute f ocal alveolar consolidation is noted. Mild degenerative changes and scoliosis of the thoracolumbar sp ine are noted. CONCLUSION: 1. Stable increased interstitial markings bilaterally. 2. No acute focal alveolar consolidation or pulmonary edema. 3. Mild degenerative changes and scoliosis of the thoracolumbar spine. Tez Baldwin MD on February 10, 2017 at 16:27 Board Certified Radiologist. This report was verified electronically.
[2017-02-10 16:39] LABS: HEMATOCRIT 19.8 % (35.0-46.0); PLATELET COUNT 19 TH/MM3 (150-450)
[2017-02-10 16:42] LABS: APTT (PATIENT) 28.2 SEC (24.3-30.1); INTERNATIONAL NORMALIZED RATIO 1.1 RATIO; PROTHROMBIN TIME - PATIENT 12.7 SEC (9.8-11.6)
[2017-02-10 17:05] LABS: ALT (GPT) 13 U/L (10-53); ANION GAP 9 MEQ/L (5-15); AST (GOT) 66 U/L (15-37); BICARBONATE 21.9 MEQ/L (21.0-32.0); BLOOD UREA NITROGEN 9 MG/DL (7-18); CHLORIDE 107 MEQ/L (98-107); GLOMERULAR FILTRATION RATE 235 ML/MIN (>89); POTASSIUM 3.2 MEQ/L (3.5-5.1); SODIUM (NA) 138 MEQ/L (136-145)
[2017-02-10 17:07] LABS: ALKALINE PHOSPHATASE 440 U/L (45-117); TOTAL BILIRUBIN ADULT 0.6 MG/DL (0.2-1.0)
[2017-02-10] MEDS ORDERED: ACETAMINOPHEN/HYDROcodone 325 MG/5 MG TAB PO ONE (17:30)
[2017-02-10] MEDS ORDERED: SODIUM CHLOR 0.9% 250 ML INJ 250 ML IV ONE (17:30)
[2017-02-10 17:41] LABS: BANDS 15 % (0-6); EOSINOPHILS 2 % (0-4); METAMYELOCYTES 1 % (0-1); MYELOCYTES 2 % (0-0); NEUTROPHIL # MANUAL DIFF 3.8 TH/MM3 (1.8-7.7); POLYS (SEG NEUTROPHILS) 61 % (16-70); PROMYELOCYTES 1 % (0-0); SCAN/DIFF FINAL DIFF MANUAL; WBC DIFF SAMPLE 100
[2017-02-10 17:42] LABS: ACANTHOCYTES OCC (NORMAL); KERATOCYTES OCC (NORMAL); PLATELET ESTIMATE SMEAR RARE (NORMAL); PLATELET MORPHOLOGY ENLARGED (NORMAL)
[2017-02-10 17:43] LABS: TEARDROP RBCS 1+ (NORMAL)
[2017-02-10] MEDS ORDERED: POTASSIUM CHLORIDE 25 MEQ EFFERVESCENT TAB PO ONE (18:45)
--- NOTE | 2017-02-10 18:51 | HHI.HP ---
HPI Service [facility] Primary Care Physician Bakari Larsen DO Admission Diagnosis Anemia, Hypoxia, Tachycardia Diagnoses: Chief Complaint: Weakness, elevated heart rate (Dianne Champion) Travel History International Travel<30 Days: No Contact w/Intl Traveler <30 Da: No Traveled to Known Affected Are: No (Dianne Champion) History of Present Illness This is a 76-year-old female with history of metastatic bladder cancer with bony metastasis to the left hip, patient is currently on palliative radiation. Last treatment was a week ago. She had been on palliative systemic therapy however her disease progressed and she was changed to second line Nivolumab which she did not tolerate. Her last treatment was in December. She had been receiving radiation treatment to the left hip, completed 9 treatments but was unable to complete the final day because she was feeling too weak. On that date , she was actually seen in the emergency room (February 02). Her lab work was unremarkable.. She was found positive for a UTI and was treated with Cipro for 3 days. Most recently, she was started on oxygen at home. Today she presented to the emergency room after she was noted to have an elevated heart rate by her home health care nurse. She also complained of feeling weak and short of breath. Denies any chest pain, no fever, no chills. She also noted that her urine started changing color, it was pink tinged yesterday and today it looks like Torsten-Aid. She denies any blood in the stool. No abdominal pain, no diarrhea. She was actually seen on December 24, 2016 with possible A flutter with RVR, however at that time she did not want to wait for cardiology evaluation and echo, therefore was discharged home on Cardizem PO and instructed to follow up as OP. Indicates she did follow up with her power ballast machine operator ,Dr. Huizar, and was put on a beta tamika and had an echo completed. Patient was evaluated in the emergency room, she was noted tachycardic, EKG shows sinus tach heart rate 102. Heart rate has been fluctuating going all the way up to 150. Blood pressure has been stable. She was noted pale. CBC was remarkable for significant anemia, hemoglobin 6.9, hematocrit 19.8. She was also noted thrombocytopenic with platelet count of 19. Urinalysis is currently pending. BMP was unremarkable other than elevated alkaline phosphatase of 440 and potassium of 3.2. Chest x-ray showed increased interstitial markings bilaterally, no acute focal alveolar consolidation or pulmonary edema. 2 units of blood have been ordered. Patient was noted to desat to 75% with minimal activity. She has oxygen at 2 L and his sat 95% while at rest. Dr. Burt has been consulted and evaluated patient. Case has been discussed with him. Patient will be undergoing anemia workup, it is possible that the anemia was due to radiation as the chemotherapy was in December 2016. Patient appears comfortable at this time, she denies any significant pain. She denies any blood in the stool, denies any history of gastric ulcers, has not noticed any hematemesis, no hematochezia. Her appetite has been stable, she has been eating fairly well. No significant weight loss. Patient is admitted for further evaluation and treatment. (Dianne Champion) Review of Systems Constitutional: COMPLAINS OF: Fatigue, DENIES: Diaphoretic episodes, Fever, Weight gain, Weight loss, Chills, Dizziness, Change in appetite, Night Sweats Endocrine: DENIES: Abnorml menstrual pattern, Heat/cold intolerance, Polydipsia , Polyuria, Polyphagia Eyes: DENIES: Blurred vision, Diplopia, Eye inflammation, Eye pain, Vision loss , Photosensitivity, Double Vision Ears, nose, mouth, throat: DENIES: Tinnitus, Hearing loss, Vertigo, Nasal discharge, Oral lesions, Throat pain, Hoarseness, Ear Pain, Running Nose, Epistaxis, Sinus Pain, Toothache, Odynophagia Respiratory: COMPLAINS OF: Shortness of breath, DENIES: Apneas, Cough, Snoring , Wheezing, Hemoptysis, Sputum production Cardiovascular: COMPLAINS OF: Palpitations, Dyspnea on Exertion, DENIES: Chest pain, Syncope, PND, Lower Extremity Edema, Orthopnea, Claudication Gastrointestinal: DENIES: Abdominal pain, Black stools, Bloody stools, Constipation, Diarrhea, Nausea, Vomiting, Difficulty Swallowing, Anorexia Genitourinary: COMPLAINS OF: Hematuria (indicates it looks like Torsten aid color ) Musculoskeletal: COMPLAINS OF: Joint pain (left hip pain has improved, occasionally has right jaw pain), DENIES: Muscle aches, Stiffness, Joint Swelling, Back pain, Neck pain Integumentary: DENIES: Abnormal pigmentation, Pruritus, Rash, Nail changes, Breast masses, Breast skin changes, Nipple discharge Hematologic/lymphatic: DENIES: Bruising, Lymphadenopathy Immunologic/allergic: DENIES: Eczema, Urticaria Neurologic: DENIES: Abnormal gait, Headache, Localized weakness, Paresthesias, Seizures, Speech Problems, Tremor, Poor Balance Psychiatric: DENIES: Anxiety, Confusion, Mood changes, Depression, Hallucinations, Agitation, Suicidal Ideation, Homicidal Ideation, Delusions ( Dianne Champion) Past Family Social History Past Medical History Transitional cell carcinoma of the bladder Bilateral hydronephrosis Hyperlipidemia Tobacco abuse, she quit 10 years ago Difficulty hearing Appendicitis Radiation therapy Recently admitted with narrow complex SVT, possibly flutter. He was evaluated by cardiology (Dr. Huizar) as outpatient had recent echo, on beta blockers. 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 Tonsillectomy Upper endoscopy and colonoscopy 7 years ago Reported Medications Reported Meds & Active Scripts Active Oxygen tank (Oxygen) 1 Ea Tank 2 Liter RUBIN.CANLoopd Via CONTINUOUS Oxygen Concentrator Portable Gaseous 2 L/min via Nasal Cannula Continuous For 99 months Aspirin EC (Aspirin) 81 Mg Tabdr 81 Mg PO DAILY Reported Metoprolol Succinate ER 24 HR (Metoprolol Succinate) 25 Mg Tab Unknown Dose PO DAILY Trazodone (Trazodone HCl) 150 Mg Tab 150 Mg PO HS Wellbutrin Xl 24 HR (Bupropion HCl) 150 Mg Tab 150 Mg PO DAILY Lortab (Hydrocodone-Acetaminophen) 5-325 Mg Tab 1 Tab PO QID (Dianne Champion) Allergies: Coded Allergies: Penicillin (Verified Allergy, Mild, 02/10/17) Active Ordered Medications Inpatient Medications Acetaminophen/ Hydrocodone Bitart 1 tab 1 tab ONCE ONCE PO Last administered on 02/10/17t 17:38; Start 02/10/17 at 17:30; Stop 02/10/17 at 17:31; Status DC Acetaminophen/ Hydrocodone Bitart ([place] 5-325 Mg) 1 tab QID PO ; Start at 21:00 Albuterol/ Ipratropium (Duoneb Neb) 1 ampule Q6HR NEB NEB ; Start 02/10/17 at 22:00 Bupropion HCl (Wellbutrin Sr) 150 mg DAILY PO ; Start 02/11/17 at 09:00 Potassium Bicarb/ Potassium Chloride (K-Lyte Cl Eff) 50 meq ONCE ONCE PO ; Start 02/10/17 at 18:45; Stop 02/10/17 at 18:46; Status DC Sodium Chloride (NS 1000 ml Inj) 1,000 ml @ 125 mls/hr Q8H IV ; Start 02/10/17 at 19:00 Sodium Chloride (NS 250 ml Inj) 250 ml @ 15 mls/hr ONCE ONCE IV ; Start at 17:30; Stop 02/11/17 at 10:09 Sodium Chloride (NS 500 ml Inj) 500 ml @ 1,000 mls/hr Q30M ONCE IV Last administered on 02/10/17t 16:48; Start 02/10/17 at 16:00; Stop 02/10/17 at 16:32 ; Status DC Trazodone HCl 150 mg 150 mg HS PO ; Start 02/10/17 at 21:00 Family History Reviewed but not contributory Social History Quit smoking 12 years ago, no ETOH, no substance abuse. Occ. uses cane. Lives with . (Dianne Champion) Physical Exam Vital Signs Vital Signs Date Time Temp Pulse Resp B/P Pulse Ox O2 Delivery O2 Flow Rate FiO2 02/10/17 18:29 20 02/10/17 18:00 126 36 126/58 95 Nasal Cannula 4 02/10/17 15:55 112 36 123/86 95 Nasal Cannula 4 02/10/17 15:49 98.6 101 42 120/57 74 Physical Exam GENERAL: This is a frail elderly female. SKIN: Skin pale, cool, dry HEAD: Atraumatic. Normocephalic. No temporal or scalp tenderness. EYES: Pupils equal round and reactive. Extraocular motions intact. No scleral icterus. No injection or drainage. Conjunctiva pale. ENT: Nose without bleeding, purulent drainage or septal hematoma. Throat without erythema, tonsillar hypertrophy or exudate. Uvula midline. Airway patent. NECK: Trachea midline. No JVD or lymphadenopathy. Supple, nontender, no meningeal signs. CARDIOVASCULAR: S1, S1, tachycardic, regular rate and rhythm without murmurs, gallops, or rubs. RESPIRATORY: Clear to auscultation. Breath sounds equal bilaterally. No wheezes , rales, or rhonchi. GASTROINTESTINAL: Abdomen soft, non-tender, nondistended. No hepato-splenomegaly , or palpable masses. No guarding. MUSCULOSKELETAL: Extremities without clubbing, cyanosis, or edema. No joint tenderness, effusion, or edema noted. No calf tenderness. Negative Homans sign bilaterally. NEUROLOGICAL: Awake and alert. Cranial nerves II through XII intact. Motor and sensory grossly within normal limits. Five out of 5 muscle strength in all muscle groups. Normal speech. Laboratory Laboratory Tests Test 02/10/17 02/10/17 02/10/17 16:05 17:40 18:04 White Blood Count 4.7 Red Blood Count 2.16 Hemoglobin 6.9 Hematocrit 19.8 Mean Corpuscular Volume 91.7 Mean Corpuscular Hemoglobin 31.9 Mean Corpuscular Hemoglobin 34.8 Concent Red Cell Distribution Width 19.6 Platelet Count 19 Mean Platelet Volume 9.7 Neutrophils (%) (Auto) 70.4 Lymphocytes (%) (Auto) 18.7 Monocytes (%) (Auto) 10.1 Eosinophils (%) (Auto) 0.3 Basophils (%) (Auto) 0.5 Neutrophils # (Auto) 3.3 Lymphocytes # (Auto) 0.9 Monocytes # (Auto) 0.5 Eosinophils # (Auto) 0.0 Basophils # (Auto) 0.0 CBC Comment AUTO DIFF Differential Total Cells 100 Counted Neutrophils % (Manual) 61 Band Neutrophils % 15 Lymphocytes % 13 Monocytes % 5 Eosinophils % 2 Neutrophils # (Manual) 3.8 Metamyelocytes 1 Myelocytes 2 Promyelocytes 1 Differential Comment FINAL DIFF MANUAL Platelet Estimate RARE Platelet Morphology Comment ENLARGED Tear Drop Cells 1+ Acanthocytes OCC Keratocytes OCC Prothrombin Time 12.7 Prothromb Time International 1.1 Ratio Activated Partial 28.2 Thromboplast Time Sodium Level 138 Potassium Level 3.2 Chloride Level 107 Carbon Dioxide Level 21.9 Anion Gap 9 Blood Urea Nitrogen 9 Creatinine 0.28 Estimat Glomerular Filtration 235 Rate Random Glucose 83 Calcium Level 7.5 Total Bilirubin 0.6 Aspartate Amino Transf 66 (AST/SGOT) Alanine Aminotransferase 13 (ALT/SGPT) Alkaline Phosphatase 440 Total Protein 5.9 Albumin 2.5 Blood Type O POSITIVE O POSITIVE Antibody Screen NEGATIVE Crossmatch Leukocyte-Reduced Red Blood Cells Blood Bank Comment (Dianne Champion) Result Diagram: 3/23/17 1605 02/10/17 1605 Imaging Last Impressions Chest X-Ray 02/10/17 0000 Signed Impressions: Service Date/Time: January 16:09 - CONCLUSION: 1. Stable increased interstitial markings bilaterally. 2. No acute focal alveolar consolidation or pulmonary edema. 3. Mild degenerative changes and scoliosis of the thoracolumbar spine. 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 Last chemotherapy was December 2015. Last radiation was last week. Presented to the emergency with weakness and increased heart rate. She was noted tachycardic but her home health care nurse, had just recently been started on oxygen at home.. In the emergency room, patient was evaluated and was noted severely anemic with hemoglobin of 6.9, hematocrit 19.8, platelets of 19. Symptomatic anemia, etiology unclear, status post radiation. Last chemotherapy was 2016. Discuss with Dr. Burt, possibly induce her radiation. We will rule out other causes of anemia. -2 units of packed cells have been ordered, continue to follow H&H Monitor platelets, no need for transfusion at this time per hematology recommendations -Anemia workup in progress -We will check stools for occult blood Tachycardia, narrow complex tach, possibly a flutter. Indicates she saw Dr. Huizar recently, had echocardiogram. Likely cause of tachycardia due to anemia. Resume beta tamika, patient not sure what she takes. We will start Lopressor 12.5 mg by mouth twice a day. -Continuous cardiac telemetry Hypoxia, possible COPD, recently put on oxygen at 2 L Continue to monitor her sats Continue with oxygen at 2 L to keep sats greater than 92% DuoNeb's as needed for any wheezing -CT of the chest has been ordered Thrombocytopenia, platelets 19, discussed with Dr. Burt, recommends not to transfuse at this time and to monitor -Repeat CBC in the morning Monitor for bleeding Metastatic bladder cancer, was on chemotherapy. Completed palliative radiation Dr. Carmel following patient Home medications reviewed, initiated as indicated For DVT prophylaxis, avoid anticoagulation, use SCDs Plan of care has been discussed with the patient, attending and registered nurse. Further management of the patient will be dependent on the hospital course This patient was seen by myself and Dr. Wright, this H&P is written on his behalf (Dianne Champion) Assessment and Plan Evaluation was done yesterday. Above note was reviewed And agree with above plan of care Appreciate oncology input (Fani Wright MD) Physician Certification 2 Midnight Certification Type: Admission for Inpatient Services Order for Inpatient Services The services are ordered in accordance with Medicare regulations or non- Medicare payer requirements, as applicable. In the case of services not specified as inpatient-only, they are appropriately provided as inpatient services in accordance with the 2-midnight benchmark. Estimated LOS (days): 2 2 days is the estimated time the patient will need to remain in the hospital, assuming treatment plan goals are met and no additional complications. Post-Hospital Plan: Home Health (Dianne Champion) Problem Qualifiers (1) Anemia: Qualified Code: D64.9 - Anemia, unspecified type Dianne Champion Feb 10, 2017 18:51 Fani Wright MD Feb 11, 2017 09:27
[2017-02-10] MEDS ORDERED: IOHEXOL 350 MG/ML 10 ML VIAL (for RAD DIAG) IV ONE (19:11)
[2017-02-10] MEDS ORDERED: ONDANSETRON HCL 4 MG/2 ML VIAL IV PRN (19:15)
[2017-02-10] MEDS ORDERED: ACETAMINOPHEN 325 MG TAB PO PRN (19:15)
[2017-02-10] MEDS ORDERED: DOCUSATE SODIUM 100 MG CAP PO PRN (19:15)
--- NOTE | 2017-02-10 19:30 | RADRPT ---
EXAM DATE/TIME: 02/10/2017 19:08 [facility] COMPARISON: CT PULMONARY ANGIOGRAM, December 24, 2016, 17:57. INDICATIONS : Shortness of breath, hypoxia and tachycardia. IV CONTRAST: 75 cc Omnipaque 350 (iohexol) IV RADIATION DOSE: 20.05 CTDIvol (mGy) MEDICAL HISTORY : Carcinoma, bladder. Chronic obstructive pulmonary disease. SURGICAL HISTORY : None. ENCOUNTER: Initial ACUITY: 1 day PAIN SCALE: 0/10 LOCATION: chest TECHNIQUE: Volumetric scanning of the chest was performed using a pulmonary embolism protocol MIP images were re constructed. Using automated exposure control and adjustment of the mA and/or kV according to patien t size, radiation dose was kept as low as reasonably achievable to obtain optimal diagnostic quality images. FINDINGS: Compare December 24, 2016. Since previous exam there is development of patchy airspace disease bilater ally predominantly in the posterior segments of both upper lobes and in the posterior aspect of both lower lobes most characteristic of a bronchopneumonia. There is moderate underlying centrilobular emp hysema. No filling defects in the pulmonary arteries to suggest pulmonary embolic disease. Trace pericardial fluid. No significant pleural effusion. No hilar, mediastinal axillary adenopathy. Acjolb-t-Evkd is i n superior vena cava. There is diffuse widespread bone sclerosis characteristic of metastatic bone di sease. CONCLUSION: 1. Negative for pulmonary embolus. 2. Patchy subsegmental airspace disease in the posterior aspect of both upper lobes and both lower lo bes most characteristic of pneumonia or aspiration. 3. Moderate centrilobular emphysema. 4. Widespread bone sclerotic lesions characteristic of metastatic bone disease. 5. Stable 5 mm nodule right lower lobe medially and soft tissue density at the cardiophrenic angle. Terry Gaytan MD on February 10, 2017 at 19:23 Board Certified Radiologist. This report was verified electronically.
[2017-02-10] MEDS: RESP: ALBUTEROL 2.5 MG/IPRATROPIUM 0.5 MG NEB (SCH) NEB (19:39)
[2017-02-10 19:52] LABS: FERRITIN 4182 NG/ML (8-252); LDH SERUM 767 U/L (84-246); TRANSFERRIN IRON PROFILE 169 MG/DL (200-360)
[2017-02-10] MEDS ORDERED: RESP: ALBUTEROL 2.5 MG/IPRATROPIUM 0.5 MG NEB (PRN) NEB (20:00)
[2017-02-10] MEDS: traZODone HCL 50 MG TAB PO SCH (20:57)
[2017-02-10] MEDS: METOPROLOL TARTRATE 25 MG TAB PO SCH (20:57)
[2017-02-10] MEDS: ACETAMINOPHEN/HYDROcodone 325 MG/5 MG TAB PO SCH (20:58)
[2017-02-10] MEDS ORDERED: PILL SPLITTER OTHER PRN (21:00)
--- NOTE | 2017-02-10 22:06 | MB ---
cc: SUZIE AUGUSTIN MD DATE OF CONSULTATION 02/10/[address] Bakari Larsen. REFERRING PHYSICIAN Emergency department physicians. REASON FOR CONSULTATION Acute onset pancytopenia. ONCOLOGIC DIAGNOSIS Metastatic urothelial cell carcinoma of the bladder with extensive skeletal metastases. She also has known soft tissue metastases involving the intra-abdominal lymph nodes as well as the liver. CHIEF COMPLAINT/REASON FOR PRESENTATION The patient was found to have sustained tachycardia at home with heart rates in the 150 range. She was also feeling generally fatigued and weak. She was sent in by her Home Health nurse. HISTORY OF PRESENT ILLNESS Ms. Chávez is a very pleasant 76-year-old female who is known to me from my outpatient practice. Ms. Chávez has been under treatment with second line palliative systemic chemotherapy with nivolumab for management of metastatic urothelial cell carcinoma. Prior to this, she had been on palliative systemic therapy with first-line carboplatin/gemcitabine on which her disease progressed I believe after seven cycles. Ms. Chávez has a history of bladder carcinoma which dates back I believe to 2012 or 2013 when she was found to have localized disease. She was recommended cystectomy but she never acted on at and, unfortunately, some years later she developed metastatic disease which is symptomatic. This occurred in the fall of 2015 and she underwent palliative radiation to a particularly symptomatic lesion involving the right side of the mandible. She subsequently started the above-noted palliative systemic chemotherapy. In December of 2016, her disease was clearly progressing on first-line chemotherapy with symptomatic pelvic metastases, particularly to the left side involving the left side of the iliac crest and also the left proximal femur and femoral head. She was initiated on palliative radiation therapy and had been on treatment when she took ill. She developed increasing fatigue, weakness as well as hematuria. She was in our emergency department last week with complaints of hematuria and fatigue and was noted to have an abnormal urinalysis. Urine culture was positive for a mixed alban. She was recommended oral antibiotics and, in fact, left the hospital after a day's hospitalization. Over the course of the past few days, she has felt increasingly fatigued and weak and was also short of breath. Her home health nurse noted her to have sustained tachycardia with a heart rate of over 150. She was referred to the emergency department where blood work revealed a hemoglobin of 6.9 gm/dl, hematocrit of 20% associated with a platelet count of 19,000. The oncology service has been consulted for further workup and management of the pancytopenia as well as coordination of care with regards to her bladder carcinoma. PAST MEDICAL HISTORY 1. Metastatic urothelial cell carcinoma of the bladder. 2. Symptomatic bony metastases. 3. Bilateral hydronephrosis. 4. Hyperlipidemia. 5. Personal history of tobaccoism. PAST SURGICAL HISTORY 1. Cataract surgery. 2. CT guided biopsy of left iliac wing mass 3. Multiple cystoscopies 4. Transurethral resection of bladder tumor. 5. Infusion port placed in 2015. 6. Appendectomy 2011, 7. Colonoscopy and polypectomy 2007. 8. Excision of Herrera's neuroma 9. Tonsillectomy 1949. ALLERGIES PENICILLIN - HIVES WHICH CAN BE SEVERE. MEDICATIONS 1. Normal saline 125 mL an hour. 2. Hydrocodone/acetaminophen 1 tablet p.o. q.i.d. (). 3. Bupropion 150 mg p.o. daily. 4. Trazodone 150 mg p.o. q.h.s. SOCIAL HISTORY The patient lives at home with her . She is a former smoker. She denies alcohol abuse. REVIEW OF SYSTEMS 13-point review of systems are obtained. The following are the pertinent positives: CONSTITUTIONAL: Fatigue, weakness, decreased appetite, breathlessness with exertion. Denies cough or hemoptysis. HEENT: She reports having some pain along the right side of her jaw. This is well-controlled. CARDIOVASCULAR: Denies angina-like chest pain, PND, orthopnea GI: Denies nausea, vomiting, diarrhea, hematochezia, melena. : Denies dysuria but reports red colored urine (likened to red Torsten-aid). MUSCULOSKELETAL: Improved pain control involving the left hip with radiation. DOMESTIC CLEANER: Denies focal sensory motor deficits. PHYSICAL EXAMINATION VITAL SIGNS: Temperature 98.6 degrees Fahrenheit, respiratory rate ranging between 20 and 40 breaths per minute, blood pressure 120/57. Heart rate ranging between 100 beats a minute and 150 beats minute. O2 sats 96% on 2 liters nasal cannula. GENERAL APPEARANCE: Ms. Chávez is an elderly female. She is laying in bed. She appears to be a pale. She is accompanied by a friend. HEENT: Head is atraumatic, normocephalic, conjunctivae are pale. Sclerae are anicteric, EOMI, PERRLA, oral exam - no pharyngeal erythema. NECK: No palpable cervical or supraclavicular lymphadenopathy. RESPIRATORY: Good air movement bilaterally. No added breath sounds. CARDIOVASCULAR: Tachycardiac, regular, S1-S2. No obvious murmurs, rubs or gallops. ABDOMEN: Thin belly, soft, nontender, nondistended. No palpable organ enlargement. LOWER EXTREMITIES: No pretibial edema. No calf tenderness. DOMESTIC CLEANER: No focal sensory or motor deficits. LABORATORY FINDINGS Blood work dated 02/10/2017: WBC count 4.7, hemoglobin 6.9 gm/dl, hematocrit 19.8 gm/dl, MCV 91.7, platelet count 19,000, absolute neutrophil count 3.3. Absolute lymphocyte count 0.9, myelocytes 2%, promyelocytes 1%, platelet estimate rare. Teardrop cells are present at 1+. Chemistries: Sodium 138, potassium 3.2, chloride 107, bicarb 22, BUN nine, creatinine 0.28, calcium 7.5, total bilirubin 0.6, AST 66, ALT 13, alkaline phosphatase 440, albumin 2.5. Urinalysis is pending at this time. ASSESSMENT Ms. 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 She was found to have metastatic disease in the fall of 2015 when she presented with symptomatic bony metastases to her jaw. Further workup revealed additional metastases to the axial and appendicular skeleton associated with additional soft tissue metastases as well. Treatment history has thus far consisted of seven cycles of carboplatin/gemcitabine. Palliative radiation to the right side of the mandible, palliative radiation to the left hip and pelvic area as well as one dose of nivolumab as second line palliative immunotherapy. She comes into the hospital with complaints of increased fatigue, weakness, breathlessness and sustained tachycardia. Blood work performed in the emergency department indicates unexplained and profound anemia as well as thrombocytopenia. Abnormal and immature WBCs are identified in the peripheral smear. She does report noting some hematuria but tells me this has been ongoing for the past two days at the most. RECOMMENDATIONS 1. Hematuria: Obtain urinalysis with reflex to culture. The etiology of the hematuria may be either urinary tract infection, radiation related cystitis or perhaps progression of the primary tumor within the bladder. 2. Severe anemia: Transfuse two units of packed red blood cells tonight. I will order an anemia workup including a hemolytic workup with haptoglobin, LDH levels as well as request serum iron studies including folic acid and vitamin B12 levels. 3. Thrombocytopenia: Etiology not known. However, bone marrow suppression secondary to radiation may be a explanation. Additionally, this may be a rare adverse effect related to nivolumab. Additional etiologies include thrombocytopenia related to peripheral consumption due to DIC from a possible urinary tract infection or other infectious etiology. The hematology service will follow along with you. MD KESHA Peng/ /6:40 PM /9:39 PM
[2017-02-11] VITALS (13 sets, daily range): BP systolic 93–112; BP diastolic 55–82; PULSE 89–125; RESP 19–24; TEMP 96.4–98.3; O2SAT 88–94
[2017-02-11] MEDS: RESP: ALBUTEROL 2.5 MG/IPRATROPIUM 0.5 MG NEB (SCH) NEB ×4 (03:24→21:48)
[2017-02-11] MEDS: SODIUM CHLOR 0.9% 1000 ML INJ 1,000 ML IV SCH (03:40)
[2017-02-11] MEDS ORDERED: ACETAMINOPHEN/HYDROcodone 325 MG/5 MG TAB PO ONE (05:49)
[2017-02-11] MEDS: PANTOPRAZOLE SOD 40 MG DELAYED RELEASE TAB PO SCH (08:20)
[2017-02-11] MEDS: ACETAMINOPHEN/HYDROcodone 325 MG/5 MG TAB PO SCH ×4 (08:20→21:51)
[2017-02-11] MEDS: buPROPion HCL 150 MG SUSTAINED RELEASE TAB PO SCH (08:21)
[2017-02-11] MEDS: METOPROLOL TARTRATE 25 MG TAB PO SCH ×2 (08:21→21:52)
--- NOTE | 2017-02-11 09:39 | HHI.PR ---
Subjective Remarks Patient still has hematuria but less than before now seems like urine is mixed with 1 No pain No shortness of breath No palpitations No nausea vomiting His more energy than yesterday Review of system for 12 point system otherwise unremarkable Objective Objective Results - Vital Signs Date Time Temp Pulse Resp B/P Pulse Ox O2 Delivery O2 Flow Rate FiO2 02/11/17 07:20 20 02/11/17 04:00 98.3 120 20 107/55 91 02/11/17 03:27 90 Nasal Cannula 3.00 02/11/17 00:26 96.8 89 19 106/63 93 02/11/17 00:18 19 02/11/17 00:03 98.1 92 20 104/57 94 02/10/17 22:00 114 02/10/17 20:51 98 16 114/59 97 Nasal Cannula 3 02/10/17 19:40 98.2 98 20 109/55 93 Nasal Cannula 3 02/10/17 19:40 93 Nasal Cannula 3.00 02/10/17 19:25 98.7 96 16 114/55 95 Nasal Cannula 3 02/10/17 18:29 20 02/10/17 18:00 126 36 126/58 95 Nasal Cannula 4 02/10/17 15:55 112 36 123/86 95 Nasal Cannula 4 02/10/17 15:49 98.6 101 42 120/57 74 I/O 02/10/17 02/10/17 02/10/17 02/11/17 02/11/17 02/11/17 06:59 14:59 22:59 06:59 14:59 22:59 Intake Total 120 ml 126 ml Balance 120 ml 126 ml Intake Oral 120 ml IV Total 126 ml # Voids 1 Result Diagram: 02/10/17 1605 02/10/17 1605 Imaging Last Impressions Chest X-Ray 02/10/17 0000 Signed Impressions: Service Date/Time: January 16:09 - CONCLUSION: 1. Stable increased interstitial markings bilaterally. 2. No acute focal alveolar consolidation or pulmonary edema. 3. Mild degenerative changes and scoliosis of the thoracolumbar spine. Tez Baldwin MD Other Results Laboratory Tests Test 02/10/17 02/10/17 02/10/17 16:05 17:40 18:04 White Blood Count 4.7 Red Blood Count 2.16 Hemoglobin 6.9 Hematocrit 19.8 Mean Corpuscular Volume 91.7 Mean Corpuscular Hemoglobin 31.9 Mean Corpuscular Hemoglobin 34.8 Concent Red Cell Distribution Width 19.6 Platelet Count 19 Mean Platelet Volume 9.7 Neutrophils (%) (Auto) 70.4 Lymphocytes (%) (Auto) 18.7 Monocytes (%) (Auto) 10.1 Eosinophils (%) (Auto) 0.3 Basophils (%) (Auto) 0.5 Neutrophils # (Auto) 3.3 Lymphocytes # (Auto) 0.9 Monocytes # (Auto) 0.5 Eosinophils # (Auto) 0.0 Basophils # (Auto) 0.0 CBC Comment AUTO DIFF Differential Total Cells 100 Counted Neutrophils % (Manual) 61 Band Neutrophils % 15 Lymphocytes % 13 Monocytes % 5 Eosinophils % 2 Neutrophils # (Manual) 3.8 Metamyelocytes 1 Myelocytes 2 Promyelocytes 1 Differential Comment FINAL DIFF MANUAL Platelet Estimate RARE Platelet Morphology Comment ENLARGED Tear Drop Cells 1+ Acanthocytes OCC Keratocytes OCC Haptoglobin 126 Prothrombin Time 12.7 Prothromb Time International 1.1 Ratio Activated Partial 28.2 Thromboplast Time Fibrinogen 327 Sodium Level 138 Potassium Level 3.2 Chloride Level 107 Carbon Dioxide Level 21.9 Anion Gap 9 Blood Urea Nitrogen 9 Creatinine 0.28 Estimat Glomerular Filtration 235 Rate Random Glucose 83 Calcium Level 7.5 Iron Level 130 Total Iron Binding Capacity 237 Percent Iron Saturation 54.9 Ferritin 4182 Total Bilirubin 0.6 Aspartate Amino Transf 66 (AST/SGOT) Alanine Aminotransferase 13 (ALT/SGPT) Alkaline Phosphatase 440 Lactate Dehydrogenase 767 Total Protein 5.9 Albumin 2.5 Blood Type O POSITIVE O POSITIVE Antibody Screen NEGATIVE Crossmatch Leukocyte-Reduced Red Blood Cells Blood Bank Comment Physical Exam Physical Exam GENERAL: This is a frail elderly female. SKIN: Skin pale, cool, dry HEAD: Atraumatic. Normocephalic. No temporal or scalp tenderness. EYES: Pupils equal round and reactive. Extraocular motions intact. No scleral icterus. No injection or drainage. Conjunctiva pale. ENT: Nose without bleeding, purulent drainage or septal hematoma. Throat without erythema, tonsillar hypertrophy or exudate. Uvula midline. Airway patent. NECK: Trachea midline. No JVD or lymphadenopathy. Supple, nontender, no meningeal signs. CARDIOVASCULAR: S1, S1, tachycardic, regular rate and rhythm without murmurs, gallops, or rubs. RESPIRATORY: Clear to auscultation. Breath sounds equal bilaterally. No wheezes , rales, or rhonchi. GASTROINTESTINAL: Abdomen soft, non-tender, nondistended. No hepato-splenomegaly , or palpable masses. No guarding. MUSCULOSKELETAL: Extremities without clubbing, cyanosis, or edema. No joint tenderness, effusion, or edema noted. No calf tenderness. Negative Homans sign bilaterally. NEUROLOGICAL: Awake and alert. Cranial nerves II through XII intact. Motor and sensory grossly within normal limits. Five out of 5 muscle strength in all muscle groups. Normal speech. 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 Last chemotherapy was December 2015. Last radiation was last week. Presented to the emergency with weakness and increased heart rate. She was noted tachycardic but her home health care nurse, had just recently been started on oxygen at home.. In the emergency room, patient was evaluated and was noted severely anemic with hemoglobin of 6.9, hematocrit 19.8, platelets of 19. Symptomatic anemia, etiology unclear, status post radiation. Last chemotherapy was 2016. Discuss with Dr. Burt, possibly induce her radiation. We will rule out other causes of anemia. -2 units of packed cells have been ordered, continue to follow H&H Monitor platelets, no need for transfusion at this time per hematology recommendations -Anemia workup in progress -We will check stools for occult blood Tachycardia, narrow complex tach, possibly a flutter. Indicates she saw Dr. Huizar recently, had echocardiogram. Likely cause of tachycardia due to anemia. Resume beta tamika, patient not sure what she takes. We will start Lopressor 12.5 mg by mouth twice a day. -Continuous cardiac telemetry Hypoxia, possible COPD, recently put on oxygen at 2 L Continue to monitor her sats Continue with oxygen at 2 L to keep sats greater than 92% DuoNeb's as needed for any wheezing -CT of the chest has been ordered Thrombocytopenia, platelets 19, discussed with Dr. Burt, recommends not to transfuse at this time and to monitor -Repeat CBC in the morning Monitor for bleeding Metastatic bladder cancer, was on chemotherapy. Completed palliative radiation Dr. Burt following patient Home medications reviewed, initiated as indicated For DVT prophylaxis, avoid anticoagulation, use SCDs Waiting for labs Plan of care has been discussed with the patient and registered nurse. Further management of the patient will be dependent on the hospital course Fani Wright MD Feb 11, 2017 09:39
[2017-02-11 11:26] LABS: MEAN CELL VOLUME 88.3 FL (80.0-100.0); MEAN CORPUSCULAR HEMOGLOBIN 29.3 PG (27.0-34.0); MEAN CORPUSCULAR HGB CONC 33.2 % (32.0-36.0); RED BLOOD COUNT 3.62 MIL/MM3 (4.00-5.30); RED CELL DISTRIBUTION WIDTH 17.4 % (11.6-17.2); WHITE BLOOD COUNT 4.6 TH/MM3 (4.0-11.0)
[2017-02-11 11:33] LABS: REVIEW FLAG FINAL
[2017-02-11 11:40] LABS: PLATELET COUNT 16 TH/MM3 (150-450)
[2017-02-11 12:19] LABS: BICARBONATE 17.4 MEQ/L (21.0-32.0); POTASSIUM 3.9 MEQ/L (3.5-5.1)
[2017-02-11 12:35] LABS: CALCIUM-PROTEIN CORRECTED 7.8 MG/DL (8.5-10.1)
[2017-02-11] MEDS ORDERED: diphenhydrAMINE HCL 25 MG CAP PO PRN (19:30)
[2017-02-11] MEDS ORDERED: SODIUM CHLOR 0.9% 250 ML INJ 250 ML IV ONE (19:30)
[2017-02-11] MEDS ORDERED: ACETAMINOPHEN 325 MG TAB PO PRN (19:30)
--- NOTE | 2017-02-11 19:35 | PD.ONC.PN ---
Subjective Subjective Remarks Ms. Chávez continues to have hematuria, the urine is the color of cool aide, no clots reported. She denies fevers or chills. She continues to feel short of breath and continues to have palpitations. Objective Data Date Time Temp Pulse Resp B/P Pulse Ox O2 Delivery O2 Flow Rate FiO2 02/11/17 17:55 92 02/11/17 16:00 97.4 111 24 112/82 92 02/11/17 12:00 97.6 115 20 98/67 90 02/11/17 10:26 99 02/11/17 09:15 88 Nasal Cannula 2.50 02/11/17 08:00 97.7 121 20 93/69 93 02/11/17 07:20 20 02/11/17 04:00 98.3 120 20 107/55 91 02/11/17 03:27 90 Nasal Cannula 3.00 02/11/17 00:26 96.8 89 19 106/63 93 02/11/17 00:18 19 02/11/17 00:03 98.1 92 20 104/57 94 02/10/17 22:00 114 02/10/17 20:51 98 16 114/59 97 Nasal Cannula 3 02/10/17 19:40 98.2 98 20 109/55 93 Nasal Cannula 3 02/10/17 19:40 93 Nasal Cannula 3.00 02/11/17 02/11/17 02/11/17 07:00 15:00 23:00 Intake Total 126 ml 240 ml Balance 126 ml 240 ml Result Diagram: 02/11/17 1105 02/11/17 1105 Laboratory Results Laboratory Tests Test 02/11/17 11:05 White Blood Count 4.6 TH/MM3 Red Blood Count 3.62 MIL/MM3 Hemoglobin 10.6 GM/DL Hematocrit 32.0 % Mean Corpuscular Volume 88.3 FL Mean Corpuscular Hemoglobin 29.3 PG Mean Corpuscular Hemoglobin 33.2 % Concent Red Cell Distribution Width 17.4 % Platelet Count 16 TH/MM3 Mean Platelet Volume 9.4 FL Sodium Level 138 MEQ/L Potassium Level 3.9 MEQ/L Chloride Level 108 MEQ/L Carbon Dioxide Level 17.4 MEQ/L Anion Gap 13 MEQ/L Blood Urea Nitrogen 6 MG/DL Creatinine 0.43 MG/DL Estimat Glomerular Filtration 144 ML/MIN Rate Random Glucose 170 MG/DL Calcium Level 7.2 MG/DL Protein Corrected Calcium 7.8 MG/DL Total Protein 6.0 GM/DL Culture Results Microbiology Date/Time Procedure Status Source Growth 02/11/17 12:15 Stool Occult Blood ([facility]UN) - Final Complete Stool Stool HEMOCCULT NEGATIVE Administered Medications Medications (Trade) Dose Ordered Sig/Shay Route PRN Reason Start Time Stop Time Status Last Admin Dose Admin Acetaminophen/ Hydrocodone Bitart ([place] 5-325 Mg) 1 tab QID PO 02/10/17 21:00 02/11/17 16:25 Trazodone HCl 150 mg 150 mg HS PO 02/10/17 21:00 02/10/17 20:57 Sodium Chloride (NS 1000 ml Inj) 1,000 ml @ 75 mls/hr [id number] IV 02/10/17 19:00 02/11/17 03:40 Metoprolol Tartrate (Lopressor) 12.5 mg Q12HR PO 02/10/17 21:00 02/11/17 08:21 Docusate Sodium (Colace) 100 mg BID PRN PO CONSTIPATION 02/10/17 19:15 02/11/17 08:21 Pantoprazole Sodium (Protonix) 40 mg DAILY PO 02/11/17 09:00 02/11/17 08:20 Objective Remarks GENERAL APPEARANCE: Ms. Chávez is an elderly female. She is laying in bed. She appears to be a pale. She is accompanied by a friend. HEENT: Head is atraumatic, normocephalic, conjunctivae are pale. Sclerae are anicteric, EOMI, PERRLA, oral exam - no pharyngeal erythema. NECK: No palpable cervical or supraclavicular lymphadenopathy. Respiratory: Good air movement bilaterally without any added breath sounds no wheezing, rhonchi or crepitus. CARDIOVASCULAR: Tachycardiac, regular, S1-S2. No obvious murmurs, rubs or gallops. ABDOMEN: Thin belly, soft, nontender, nondistended. No palpable organ enlargement. LOWER EXTREMITIES: No pretibial edema. No calf tenderness. UNIT CLERK: No focal sensory or motor deficits. Assessment/Plan Assessment Ms. 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 She was found to have metastatic disease in the fall of 2015 when she presented with symptomatic bony metastases to her jaw. Further workup revealed additional metastases to the axial and appendicular skeleton associated with additional soft tissue metastases as well. Treatment history has thus far consisted of seven cycles of carboplatin/gemcitabine. Palliative radiation to the right side of the mandible, palliative radiation to the left hip and pelvic area as well as one dose of nivolumab as second line palliative immunotherapy. She comes into the hospital with complaints of increased fatigue, weakness, breathlessness and sustained tachycardia. Blood work performed in the emergency department indicates unexplained and profound anemia as well as thrombocytopenia. Abnormal and immature WBCs are identified in the peripheral smear. She does report noting some hematuria but tells me this has been ongoing for the past two days at the most. Plan 1. Metastatic bladder carcinoma: Treatment on hold until acute issues have resolved specifically cytopenias. She had been most recently on Nivolumab as second line palliative systemic therapy. 2. Hematuria: Urinalysis ordered, on empiric antibiotics. May need urology evaluation to evaluate for source of bleeding. 3. Anemia: Improved with red cell transfusions on 02/10/2017. No evidence of iron deficiency. 4. Thrombocytopenia: Likely related to marrow suppression, however platelet morphology described as large on peripheral smear. One consideration would be immune thrombocytopenic purpura perhaps related to Nivolumab therapy. I will also order a HIT antibody. I will start her on empiric corticosteroid therapy with prednisone 60 milligrams daily in case she does have an immune component to the thrombocytopenia. Additionally, 1 unit platelet transfusion has been ordered for this evening. Monitor platelet counts. David Burt MD Feb 11, 2017 19:35
[2017-02-11] MEDS: traZODone HCL 50 MG TAB PO SCH (21:51)
[2017-02-11] MEDS: predniSONE 20 MG TAB PO SCH (22:00)
[2017-02-12] VITALS (15 sets, daily range): BP systolic 87–138; BP diastolic 56–82; PULSE 101–115; RESP 18–27; TEMP 96.1–98.2; O2SAT 85–98
[2017-02-12] MEDS: RESP: ALBUTEROL 2.5 MG/IPRATROPIUM 0.5 MG NEB (SCH) NEB ×4 (03:23→19:34)
[2017-02-12] MEDS ORDERED: KETOROLAC TROMETHAMINE 30 MG/ML (IVP) VIAL IV PUSH PRN (04:15)
[2017-02-12] MEDS ORDERED: ACETAMINOPHEN 1000 MG/100 ML VIAL IV ONE ×2 (05:00→05:15)
[2017-02-12 05:26] LABS: BLOOD, URINE LARGE (NEG); COMMENT (UR) CULTURE INDICATED; CULTURE IF INDICATED CULTURE INDICATED; GLUCOSE,URINE NEG (NEG); KETONE, URINE 150 mg/dL (NEG); NITRITE,URINE NEG (NEG)
[2017-02-12 05:27] LABS: URINE COLOR RED (YELLW/STRAW)
[2017-02-12] MEDS: ACETAMINOPHEN/HYDROcodone 325 MG/5 MG TAB PO SCH (07:02)
[2017-02-12 07:18] LABS: HEMATOCRIT 26.6 % (35.0-46.0); MEAN CELL VOLUME 86.4 FL (80.0-100.0); MEAN CORPUSCULAR HEMOGLOBIN 30.1 PG (27.0-34.0); MEAN CORPUSCULAR HGB CONC 34.8 % (32.0-36.0); RED BLOOD COUNT 3.08 MIL/MM3 (4.00-5.30); WHITE BLOOD COUNT 5.4 TH/MM3 (4.0-11.0)
[2017-02-12 07:46] LABS: BICARBONATE 16.1 MEQ/L (21.0-32.0); POTASSIUM 3.6 MEQ/L (3.5-5.1)
[2017-02-12 07:55] LABS: PLATELET COUNT 19 TH/MM3 (150-450)
[2017-02-12 08:02] LABS: REVIEW FLAG FINAL
[2017-02-12 08:08] LABS: CALCIUM-PROTEIN CORRECTED 7.7 MG/DL (8.5-10.1)
--- NOTE | 2017-02-12 08:18 | PD.ONC.PN ---
Subjective Subjective Remarks Afebrile overnight. She states her urine is no longer pink tinged. She reports a cough but states it is improved with her breathing treatments. Per RN no obvious bleeding. Objective Data Date Time Temp Pulse Resp B/P Pulse Ox O2 Delivery O2 Flow Rate FiO2 02/12/17 05:57 20 02/12/17 05:56 20 02/12/17 04:00 96.1 102 18 124/56 91 02/12/17 00:00 97.5 113 18 101/66 90 02/11/17 23:00 20 02/11/17 23:00 20 02/11/17 21:52 93 Nasal Cannula 3.00 02/11/17 21:00 122 02/11/17 20:00 96.4 125 20 104/57 90 02/11/17 17:55 92 02/11/17 16:00 97.4 111 24 112/82 92 02/11/17 12:00 97.6 115 20 98/67 90 02/11/17 10:26 99 02/11/17 09:15 88 Nasal Cannula 2.50 02/12/17 02/12/17 02/12/17 07:00 15:00 23:00 Intake Total 866 ml Balance 866 ml Result Diagram: 02/12/17 0648 02/12/17 0648 Laboratory Results Laboratory Tests Test 02/11/17 02/11/17 02/12/17 02/12/17 11:05 19:41 04:53 06:48 White Blood Count 4.6 TH/MM3 5.4 TH/MM3 Red Blood Count 3.62 MIL/MM3 3.08 MIL/MM3 Hemoglobin 10.6 GM/DL 9.3 GM/DL Hematocrit 32.0 % 26.6 % Mean Corpuscular Volume 88.3 FL 86.4 FL Mean Corpuscular Hemoglobin 29.3 PG 30.1 PG Mean Corpuscular Hemoglobin 33.2 % 34.8 % Concent Red Cell Distribution Width 17.4 % 18.0 % Platelet Count 16 TH/MM3 19 TH/MM3 Mean Platelet Volume 9.4 FL 9.9 FL Sodium Level 138 MEQ/L 140 MEQ/L Potassium Level 3.9 MEQ/L 3.6 MEQ/L Chloride Level 108 MEQ/L 110 MEQ/L Carbon Dioxide Level 17.4 MEQ/L 16.1 MEQ/L Anion Gap 13 MEQ/L 14 MEQ/L Blood Urea Nitrogen 6 MG/DL 8 MG/DL Creatinine 0.43 MG/DL 0.26 MG/DL Estimat Glomerular Filtration 144 ML/MIN 257 ML/MIN Rate Random Glucose 170 MG/DL 131 MG/DL Calcium Level 7.2 MG/DL 7.0 MG/DL Protein Corrected Calcium 7.8 MG/DL Total Protein 6.0 GM/DL Blood Bank Comment Urine Color RED Urine Turbidity CLOUDY Urine pH 6.0 Urine Specific [place] 1.023 Urine Protein 100 mg/dL Urine Glucose (UA) NEG mg/dL Urine Ketones 150 mg/dL Urine Occult Blood LARGE Urine Nitrite NEG Urine Bilirubin NEG Urine Urobilinogen LESS THAN 2.0 MG/DL Urine Leukocyte Esterase SMALL Urine RBC /hpf Urine WBC 87 /hpf Microscopic Urinalysis Comment CULTURE INDICATED Culture Results Microbiology Date/Time Procedure Status Source Growth 02/11/17 12:15 Stool Occult Blood (YUN) - Final Complete Stool Stool HEMOCCULT NEGATIVE 02/12/17 04:53 Urine Culture Received Urine Random Urine Pending Administered Medications Medications (Trade) Dose Ordered Sig/Shay Route PRN Reason Start Time Stop Time Status Last Admin Dose Admin Acetaminophen/ Hydrocodone Bitart ([place] 5-325 Mg) 1 tab QID PO 02/10/17 21:00 02/12/17 07:02 Trazodone HCl 150 mg 150 mg HS PO 02/10/17 21:00 02/11/17 21:51 Sodium Chloride (NS 1000 ml Inj) 1,000 ml @ 75 mls/hr [id number] IV 02/10/17 19:00 02/11/17 03:40 Metoprolol Tartrate (Lopressor) 12.5 mg Q12HR PO 02/10/17 21:00 02/11/17 21:52 Docusate Sodium (Colace) 100 mg BID PRN PO CONSTIPATION 02/10/17 19:15 02/11/17 08:21 Pantoprazole Sodium (Protonix) 40 mg DAILY PO 02/11/17 09:00 02/11/17 08:20 Prednisone (Deltasone) 60 mg DAILY PO 02/11/17 21:00 02/11/17 22:00 Objective Remarks GENERAL: Older female, lying in bed in no distress. SKIN: Warm and dry. HEAD: Normocephalic. EYES: No injection or drainage. NECK: Supple, trachea midline. CARDIOVASCULAR: Regular rate and rhythm without murmurs. RESPIRATORY: Lungs clear anteriorly, coarse crackles to bases. GASTROINTESTINAL: Abdomen soft, non-tender, nondistended. EXTREMITIES: No cyanosis, or edema. NEUROLOGICAL: Normal speech, A&Ox3. Moving all extremities. Assessment/Plan Assessment 76-year-old female with metastatic urothelial bladder cancer. She has been receiving palliative carboplatin and gemcitabine as well as palliative radiation to her bony metastases. She also received 1 dose of Nivolumab as palliative immunotherapy. Plan Her thrombocytopenia is not likely related to marrow suppression. She received 1 unit of platelets last night which only increased her count from 16,000-19, 000 today. We will monitor for bleeding. Will transfuse as needed. She was started yesterday on empiric corticosteroid therapy with prednisone 60 mg daily in case this happens to be ITP. We will hold off on any chemotherapy until the cytopenias have resolved. Continue to monitor platelet counts. Attending Statement The exam, history, and the medical decision-making described in the above note were completed with the assistance of the mid-level provider. I reviewed and agree with the findings presented. I attest that I had a [id number] encounter with the patient on the same day, and personally performed and documented my assessment and findings in the medical record. 1: I reviewed two ct scans and chest xrays which show ground glass infiltrates in the lungs which are new and have the appearance of a pneumonitis possibly related to gemcitabine or an immune related rx to the nivolumab. 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 She is deteriorating and unless things improve has very little time left. -increase steroids spoke with patient and about code status. Given her diagnosis, lack of therapeutics options, and severity of illness no CPR appears appropriate. Both and agree. Orders written Tawnya Ruiz Feb 12, 2017 08:18 Christopher Arrington MD Feb 12, 2017 15:15
[2017-02-12] MEDS: predniSONE 20 MG TAB PO SCH (08:49)
[2017-02-12] MEDS: SODIUM CHLOR 0.9% 1000 ML INJ 1,000 ML IV SCH ×2 (08:49→17:53)
[2017-02-12] MEDS: PANTOPRAZOLE SOD 40 MG DELAYED RELEASE TAB PO SCH (08:49)
[2017-02-12] MEDS: METOPROLOL TARTRATE 25 MG TAB PO SCH ×2 (08:50→19:55)
[2017-02-12] MEDS: buPROPion HCL 150 MG SUSTAINED RELEASE TAB PO SCH (08:50)
--- NOTE | 2017-02-12 10:18 | RADRPT ---
EXAM DATE/TIME: 02/12/2017 09:40 [facility] COMPARISON: CT PULMONARY ANGIOGRAM, February 10, 2017, 19:08. CHEST SINGLE AP, February 10, 2017, 16:09. INDICATIONS : Short of Breath. MEDICAL HISTORY : Chronic obstructive pulmonary disease. Carcinoma, bladder. SURGICAL HISTORY : Port Placement. ENCOUNTER: Initial ACUITY: 1 day PAIN SCORE: 0/10 LOCATION: Bilateral chest FINDINGS: Single AP upright portable view the chest again demonstrates chronic hyperinflation with stable appea wallace of diffuse reticular air space densities involving predominantly the upper lobes. This area was seen to represent areas of honeycombing and interstitial thickening on comparison CT. Background of diffuse centrilobular emphysematous change. There is a central line overlying the distal SVC, stable. Heart size is mildly enlarged given the deg ree of hyperinflation. Osseous structures are intact. CONCLUSION: Stable exam. Indu Reed MD on February 12, 2017 at 10:14 Board Certified Radiologist. This report was verified electronically.
--- NOTE | 2017-02-12 10:19 | HHI.PR ---
Subjective Remarks Patient still has mild hematuria but less than before Feelings some shortness of breath somewhat better with breathing treatment No pain No shortness of breath No palpitations No nausea vomiting His more energy than yesterday Review of system for 12 point system otherwise unremarkable Objective Objective Results - Vital Signs Date Time Temp Pulse Resp B/P Pulse Ox O2 Delivery O2 Flow Rate FiO2 02/12/17 09:00 95 Nasal Cannula 4.00 02/12/17 08:45 97.9 101 18 102/56 85 02/12/17 05:57 20 02/12/17 05:56 20 02/12/17 04:00 96.1 102 18 124/56 91 02/12/17 00:00 97.5 113 18 101/66 90 02/11/17 23:00 20 02/11/17 23:00 20 02/11/17 21:52 93 Nasal Cannula 3.00 02/11/17 21:00 122 02/11/17 20:00 96.4 125 20 104/57 90 02/11/17 17:55 92 02/11/17 16:00 97.4 111 24 112/82 92 02/11/17 12:00 97.6 115 20 98/67 90 02/11/17 10:26 99 I/O 02/11/17 02/11/17 02/11/17 02/12/17 02/12/17 02/12/17 07:00 15:00 23:00 07:00 15:00 23:00 Intake Total 126 ml 240 ml 1283 ml 866 ml Balance 126 ml 240 ml 1283 ml 866 ml Intake Oral 240 ml 120 ml 240 ml IV Total 126 ml 1163 ml 626 ml # Voids 1 3 4 3 # Bowel Movements 2 Result Diagram: 02/12/17 0648 02/12/17 0648 Imaging Last Impressions Chest X-Ray 02/10/17 0000 Signed Impressions: Service Date/Time: January 16:09 - CONCLUSION: 1. Stable increased interstitial markings bilaterally. 2. No acute focal alveolar consolidation or pulmonary edema. 3. Mild degenerative changes and scoliosis of the thoracolumbar spine. Tez Baldwin MD Other Results Laboratory Tests Test 02/11/17 02/11/17 02/12/17 02/12/17 11:05 19:41 04:53 06:48 White Blood Count 4.6 5.4 Red Blood Count 3.62 3.08 Hemoglobin 10.6 9.3 Hematocrit 32.0 26.6 Mean Corpuscular Volume 88.3 86.4 Mean Corpuscular Hemoglobin 29.3 30.1 Mean Corpuscular Hemoglobin 33.2 34.8 Concent Red Cell Distribution Width 17.4 18.0 Platelet Count 16 19 Mean Platelet Volume 9.4 9.9 Sodium Level 138 140 Potassium Level 3.9 3.6 Chloride Level 108 110 Carbon Dioxide Level 17.4 16.1 Anion Gap 13 14 Blood Urea Nitrogen 6 8 Creatinine 0.43 0.26 Estimat Glomerular Filtration 144 257 Rate Random Glucose 170 131 Calcium Level 7.2 7.0 Protein Corrected Calcium 7.8 7.7 Total Protein 6.0 5.7 Blood Bank Comment Urine Color RED Urine Turbidity CLOUDY Urine pH 6.0 Urine Specific [place] 1.023 Urine Protein 100 Urine Glucose (UA) NEG Urine Ketones 150 Urine Occult Blood LARGE Urine Nitrite NEG Urine Bilirubin NEG Urine Urobilinogen LESS THAN 2.0 Urine Leukocyte Esterase SMALL Urine RBC Urine WBC 87 Microscopic Urinalysis Comment CULTURE INDICATED Date/Time Procedure Status Source Growth 02/12/17 04:53 Urine Culture Received Urine Random Urine Pending 02/11/17 12:15 Stool Occult Blood (YUN) - Final Complete Stool Stool HEMOCCULT NEGATIVE Physical Exam Physical Exam GENERAL: This is a frail elderly female. SKIN: Skin pale, cool, dry HEAD: Atraumatic. Normocephalic. No temporal or scalp tenderness. EYES: Pupils equal round and reactive. Extraocular motions intact. No scleral icterus. No injection or drainage. Conjunctiva pale. ENT: Nose without bleeding, purulent drainage or septal hematoma. Throat without erythema, tonsillar hypertrophy or exudate. Uvula midline. Airway patent. NECK: Trachea midline. No JVD or lymphadenopathy. Supple, nontender, no meningeal signs. CARDIOVASCULAR: S1, S1, tachycardic, regular rate and rhythm without murmurs, gallops, or rubs. RESPIRATORY: Some decreased breath sounds bibasally with occasional Rales. No wheezes, or rhonchi. GASTROINTESTINAL: Abdomen soft, non-tender, nondistended. No hepato-splenomegaly , or palpable masses. No guarding. MUSCULOSKELETAL: Extremities without clubbing, cyanosis, or edema. No joint tenderness, effusion, or edema noted. No calf tenderness. Negative Homans sign bilaterally. NEUROLOGICAL: Awake and alert. Cranial nerves II through XII intact. Motor and sensory grossly within normal limits. Five out of 5 muscle strength in all muscle groups. Normal speech. 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 Last chemotherapy was December 2015. Last radiation was last week. Presented to the emergency with weakness and increased heart rate. She was noted tachycardic but her home health care nurse, had just recently been started on oxygen at home.. In the emergency room, patient was evaluated and was noted severely anemic with hemoglobin of 6.9, hematocrit 19.8, platelets of 19. Symptomatic anemia, etiology unclear, status post radiation. Last chemotherapy was 2016. Discuss with Dr. Burt, possibly induce her radiation. We will rule out other causes of anemia. -2 units of packed cells have been given, continue to follow H&H Monitor platelets, status post transfusion -Anemia workup in progress -Negative stools for occult blood -Discussed with hematology [employer]ENTATIVE Tachycardia, narrow complex tach, possibly a flutter. Indicates she saw Dr. Huizar recently, had echocardiogram. Likely cause of tachycardia due to anemia. Resumed beta tamika, patient not sure what she takes. Lopressor 12.5 mg by mouth twice a day. -Continuous cardiac telemetry. Improving Hypoxia, possible COPD, recently put on oxygen at 2 L Continue to monitor her sats. Continue with oxygen to keep sats greater than 92% DuoNeb's as needed for any wheezing -CT of the chest report reviewed likely aspiration plan for antibiotics -No fever no leukocytosis. Will monitor. -Plan for chest x-ray today. Thrombocytopenia, platelets 19, status post transfusion -Repeat CBC in the morning Monitor for bleeding Metastatic bladder cancer, was on chemotherapy. Completed palliative radiation Dr. Burt following patient Metabolic acidosis -We will monitor and start bicarbonate Labs reviewed in detail Home medications reviewed, initiated as indicated For DVT prophylaxis, avoid anticoagulation, use SCDs Waiting for labs Plan of care has been discussed with the patient and registered nurse. Further management of the patient will be dependent on the hospital course Condition guarded Fani Wright MD 25, 2017 10:18
[2017-02-12] MEDS: ACETAMINOPHEN/HYDROcodone 325 MG/5 MG TAB PO PRN ×2 (10:35→14:26)
[2017-02-12] MEDS: metroNIDAZOLE 500 MG INJ 100 ML IV SCH ×3 (10:39→23:21)
[2017-02-12] MEDS: AZITHROMYCIN INJ 500 MG in SODIUM CHLOR 0.9% 250 ML INJ 250 ML IV SCH (10:45)
[2017-02-12] MEDS ORDERED: SODIUM CHLOR 0.45% 1000 ML INJ 1,000 ML IV SCH (11:00)
[2017-02-12] MEDS ORDERED: SODIUM BICARBONATE 8.4% INJ 50 MEQ in SODIUM CHLOR 0.45% 1000 ML INJ 1,000 ML IV SCH (11:00)
--- NOTE | 2017-02-12 11:18 | EKG ---
Date Performed: 02/10/2017 Time Performed: 15:53:12 PTAGE: 76 years EKG: SINUS TACHYCARDIA ABNORMAL ECG PREVIOUS TRACING : 02/02/2017 10.32 DOCTOR: Shaniqua Boyle Interpretating Date/Time 02/12/2017 11:14:41
[2017-02-12] MEDS ORDERED: FUROSEMIDE 20 MG/2 ML VIAL IV PUSH ONE (13:45)
[2017-02-12 13:56] LABS: BLOOD GAS BASE EXCESS -13.8 mmol/L (-2-2); BLOOD GAS CARBOXYHEMOGLOBIN 1.3 % (0-4); BLOOD GAS HCO3 10 mmol/L (22-26); BLOOD GAS O2 HGB SATURATION 83 % (90-100); BLOOD GAS OXYGEN CONTENT 11.9 Vol % (12.0-20.0); BLOOD GAS PCO2 17 mmHg (38-42); BLOOD GAS PO2 53 mmHg (61-120); BLOOD GAS TOTAL HGB 10.2 G/DL (12.0-16.0); CRITICAL VALUE YES; LITER FLOW 6 L/M; OXYGEN DEVICE Venti Mask; TEMP CORR TO 98.6
[2017-02-12 13:57] LABS: DRAW SITE LT RADIAL; FIO2 35 %; NUMBER OF ARTERIAL PUNCTURES 2; STAT YES; ULNAR PULSE PRESENT
[2017-02-12] MEDS ORDERED: PANTOPRAZOLE SODIUM 40 MG VIAL IV PUSH SCH (15:15)
[2017-02-12] MEDS ORDERED: SODIUM BICARBONATE 8.4% INJ 50 MEQ/50 ML SYR IV PUSH ONE (15:45)
[2017-02-12] MEDS ORDERED: VANCOMYCIN INJ 1,000 MG in SODIUM CHLOR 0.9% 250 ML INJ 250 ML IV ONE (15:45)
[2017-02-12] MEDS ORDERED: POTASSIUM CHLOR 20 MEQ PREMIX 100 ML IV PRN ×2 (16:00)
[2017-02-12] MEDS ORDERED: MAGNESIUM SULFATE INJ 4 GM in SODIUM CHLORIDE 0.9% INJ 92 ML IV PRN (16:00)
[2017-02-12] MEDS ORDERED: POTASSIUM PHOSPHATE MONOBASIC 500 MG TAB PO PRN (16:00)
[2017-02-12] MEDS ORDERED: POTASSIUM CHLOR 40 MEQ PREMIX 100 ML IV PRN ×2 (16:00)
[2017-02-12] MEDS ORDERED: POTASSIUM PHOSPHATE INJ 30 MMOL in SODIUM CHLOR 0.9% 250 ML INJ 250 ML IV PRN (16:00)
[2017-02-12] MEDS ORDERED: SODIUM PHOSPHATE INJ 30 MMOL in SODIUM CHLOR 0.9% 250 ML INJ 240 ML IV PRN (16:00)
[2017-02-12] MEDS ORDERED: MAGNESIUM SULFATE INJ 2 GM in SODIUM CHLORIDE 0.9% INJ 96 ML IV PRN (16:00)
[2017-02-12] MEDS ORDERED: POTASSIUM PHOSPHATE MONOBASIC 500 MG TAB PO/TUBE PRN (16:00)
[2017-02-12] MEDS ORDERED: MAGNESIUM OXIDE 400 MG TAB PO PRN (16:00)
--- NOTE | 2017-02-12 16:26 | PD.CONS ---
[facility] Service Critical Care Medicine Consult Requested By Dr. Wright Reason for Consult Acute hypoxemic respiratory failure Severe sepsis Healthcare associated pneumonia in an immunocompromised patient COPD exacerbation Severe metabolic acidosis Thrombocytopenia Primary Care Physician Bakari Larsen DO History of Present Illness Ms. Chávez is a 76-year-old female with past medical history of metastatic urothelial cell carcinoma with metastatic disease to the bone, COPD recently placed on home O2. She had been receiving palliative chemotherapy and radiation ; last chemotherapy was December 2016 and last radiation was one week ago. On the day of admission 02/10/17 home health nurse noted her to have sustained tachycardia with a heart rate of over 150 and patient was sent to [place] emergency department for further workup. Her admission blood work showed hemoglobin 6.9 gm/dl,.with a platelet count of 19,000. WBC count was 4.7 with 15% bands. A CT of the chest PE protocol showed no PE, moderate emphysema, bilateral upper and lower lobe infiltrates indicating pneumonia. Patient was initially placed by the hospitalist on IV Flagyl and azithromycin. Patient was transferred to the ICU today for increasing shortness of breath, and hypoxia and was placed on BiPAP. Chemistry and ABG showed significant metabolic acidosis. ABG on 35% oxygen showed a pH of 7.39/PCO2 17/PO2 50, Oxygen saturation 83%. Her base excess was -14. Patient was already on bicarbonate infusion at 42 ml per hour I evaluated the patient in ICU. She is tachypneic and in moderate distress on BiPAP. Currently receiving azithromycin and Flagyl, I have added cefepime 2 g IV every 8 hours and single dose of vancomycin to cover for healthcare associated pneumonia in an immunocompromised patient. Blood cultures sputum cultures have been sent. Lactic acid is pending at this time Review of Systems ROS Limitations: Clinical Condition (On bipap, tachypneic) Past Family Social History Allergies: Coded Allergies: Penicillin (Verified Allergy, Mild, 02/10/17) Past Medical History Metastatic urothelial cell carcinoma of bladder on palliative chemotherapy and radiation. (Last chemo 12/2015. 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 Tonsillectomy Reported Medications O2 by NC Aspirin EC (Aspirin) 81 Mg Tabdr 81 Mg PO DAILY Metoprolol Succinate ER 24 HR (Metoprolol Succinate) 25 Mg Tab Unknown Dose PO DAILY Trazodone (Trazodone HCl) 150 Mg Tab 150 Mg PO HS Wellbutrin Xl 24 HR (Bupropion HCl) 150 Mg Tab 150 Mg PO DAILY Lortab (Hydrocodone-Acetaminophen) 5-325 Mg Tab 1 Tab PO QID Active Ordered Medications Reviewed Family History Reviewed Social History Quit smoking 12 years ago, no alcohol use Physical Exam Vital Signs Vital Signs Date Time Temp Pulse Resp B/P Pulse Ox O2 Delivery O2 Flow Rate FiO2 02/12/17 15:26 98 50 02/12/17 14:40 95 100 02/12/17 13:45 115 138/82 87 02/12/17 12:00 97.5 103 18 87/65 89 02/12/17 09:00 95 Nasal Cannula 4.00 02/12/17 08:45 97.9 101 18 102/56 85 02/12/17 05:57 20 02/12/17 05:56 20 02/12/17 04:00 96.1 102 18 124/56 91 02/12/17 00:00 97.5 113 18 101/66 90 02/11/17 23:00 20 02/11/17 23:00 20 02/11/17 21:52 93 Nasal Cannula 3.00 02/11/17 21:00 122 02/11/17 20:00 96.4 125 20 104/57 90 02/11/17 17:55 92 Physical Exam GENERAL: Patient is a frail cachectic elderly female who appears critically ill on BiPAP SKIN: Skin pale, cool, dry HEAD: Atraumatic. Normocephalic. EYES: Pupils equal round and reactive. Conjunctiva pale. ENT: Nose without bleeding, purulent drainage or septal hematoma. BiPAP ligaments oral cavity exam NECK: Trachea midline. No JVD or lymphadenopathy. Supple CARDIOVASCULAR: Tachycardic S1-S2 normal no murmurs heard RESPIRATORY: Tachypneic. Coarse air entry bilaterally with mild expiratory wheezes GASTROINTESTINAL: Abdomen soft, non-tender, nondistended. No hepato-splenomegaly , or palpable masses. No guarding. MUSCULOSKELETAL: Extremities without clubbing, cyanosis, or edema. NEUROLOGICAL: Awake and alert. Moves all his extremities follows commands no focal deficits Laboratory Laboratory Tests Test 02/11/17 02/12/17 02/12/17 02/12/17 19:41 04:53 06:48 13:45 Blood Bank Comment Urine Color RED Urine Turbidity CLOUDY Urine pH 6.0 Urine Specific [place] 1.023 Urine Protein 100 Urine Glucose (UA) NEG Urine Ketones 150 Urine Occult Blood LARGE Urine Nitrite NEG Urine Bilirubin NEG Urine Urobilinogen LESS THAN 2.0 Urine Leukocyte Esterase SMALL Urine RBC Urine WBC 87 Microscopic Urinalysis Comment CULTURE INDICATED White Blood Count 5.4 Red Blood Count 3.08 Hemoglobin 9.3 Hematocrit 26.6 Mean Corpuscular Volume 86.4 Mean Corpuscular Hemoglobin 30.1 Mean Corpuscular Hemoglobin 34.8 Concent Red Cell Distribution Width 18.0 Platelet Count 19 Mean Platelet Volume 9.9 Sodium Level 140 Potassium Level 3.6 Chloride Level 110 Carbon Dioxide Level 16.1 Anion Gap 14 Blood Urea Nitrogen 8 Creatinine 0.26 Estimat Glomerular Filtration 257 Rate Random Glucose 131 Calcium Level 7.0 Protein Corrected Calcium 7.7 Total Protein 5.7 Blood Gas Puncture Site LT RADIAL Blood Gas Patient Temperature 98.6 Blood Gas HCO3 10 Blood Gas Base Excess -13.8 Blood Gas Oxygen Saturation 83 Arterial Blood pH 7.39 Arterial Blood Partial 17 Pressure CO2 Arterial Blood Partial 53 Pressure O2 Arterial Blood Oxygen Content 11.9 Arterial Blood 1.3 Carboxyhemoglobin Arterial Blood Methemoglobin 1.0 Blood Gas Hemoglobin 10.2 Oxygen Delivery Device Venti Mask Blood Gas Liter Flow 6 Blood Gas Inspired Oxygen 35 Date/Time Procedure Status Source Growth 02/12/17 04:53 Urine Culture Received Urine Random Urine Pending 02/11/17 12:15 Stool Occult Blood (YUN) - Final Complete Stool Stool HEMOCCULT NEGATIVE Result Diagram: 02/12/17 0648 02/12/[address] pulmonary angiogram- No PE, moderate emphysema. Bilateral upper and lower lobe infiltrates Septic Shock Reassessment Heart: Other (tachycardic) Lungs: Course Skin: Dry Peripheral Pulses: Weak Right Radial Weak Left Radial Assessment and Plan Assessment and Plan NEURO: -Minimize sedation, pain control with when necessary morphine RESP: Acute hypoxemic respiratory failure Healthcare associated pneumonia -BiPAP 12 over 5 -DuoNeb every 6 hours and when necessary -Solu-Medrol 60 every 12 increased to 60 every 6 hours -Add Symbicort 1 puff twice a day -See ID section for antibiotics CV: -Monitor hemodynamics -IV fluid half normal saline at 150 ML per hour -Check lactic acid GI: -Nothing by mouth except meds. IV Protonix : Metastatic bladder cancer. -Dr. Burt from oncology following -Monitor renal function closely. Place Purvis catheter. ID: Severe sepsis Healthcare associated pneumonia -IV vancomycin single dose, cefepime 2 g IV every 8 hours. Continue azithromycin and Flagyl. -Follow up on blood urine and sputum culture HEME: Metastatic bladder cancer -oncology Dr. Burt Thrombocytopenia -Monitor CBC, CMP, coags -Thrombocytopenia is chemotherapy-induced ENDO: -Electrolyte replacement per protocol. Sliding scale insulin if needed PROPH: -Bilateral lower extremity SCDs. Chemical prophylaxis contraindicated due to thrombocytopenia, anemia. IV Protonix for GI prophylaxis LINES: -Utilize peripheral IVs, central line if needed CC time 45 min Code Status DNR Nehemiah Álvarez MD Feb 12, 2017 16:26
[2017-02-12 17:14] LABS: BLOOD GAS BASE EXCESS -4.3 mmol/L (-2-2); BLOOD GAS CARBOXYHEMOGLOBIN 1.8 % (0-4); BLOOD GAS HCO3 18 mmol/L (22-26); BLOOD GAS O2 HGB SATURATION 96 % (90-100); BLOOD GAS PCO2 21 mmHg (38-42); BLOOD GAS PO2 94 mmHg (61-120); BLOOD GAS TOTAL HGB 8.9 G/DL (12.0-16.0); TEMP CORR TO 98.6
[2017-02-12 17:17] LABS: CRITICAL VALUE YES; DRAW SITE RT RADIAL; FIO2 50 %; NUMBER OF ARTERIAL PUNCTURES 1; OXYGEN DEVICE BiPAP; STAT NO; ULNAR PULSE PRESENT; VENT SETTINGS IPAP12/EPAP5
[2017-02-12 17:31] LABS: MAGNESIUM 1.9 MG/DL (1.5-2.5)
[2017-02-12] MEDS ORDERED: SODIUM CHLOR 0.9% 1000 ML INJ 1,000 ML IV ONE ×2 (17:45)
[2017-02-12] MEDS: MORPHINE SULFATE 4 MG/ML INJ IV PUSH PRN ×3 (17:52→23:26)
[2017-02-12] MEDS: AZTREONAM INJ 2,000 MG in SODIUM CHLORIDE 0.9% INJ 100 ML IV SCH (17:53)
[2017-02-12] MEDS: traZODone HCL 50 MG TAB PO SCH (19:55)
[2017-02-12] MEDS ORDERED: ACETAMINOPHEN/HYDROcodone 325 MG/5 MG TAB PO PRN (20:00)
[2017-02-12] MEDS ORDERED: methylPREDNISolone SOD SUCC 125 MG/2 ML VIAL IV PUSH SCH (21:00)
[2017-02-12] MEDS: ACETAMINOPHEN/HYDROcodone 325 MG/10 MG TAB PO PRN (21:28)
[2017-02-12] MEDS: methylPREDNISolone SOD SUCC 125 MG/2 ML VIAL IV PUSH SCH (23:21)
[2017-02-13] VITALS (9 sets, daily range): BP systolic 110–136; BP diastolic 64–77; PULSE 88–110; RESP 14–17; TEMP 97.5–98.5; O2SAT 90–99
[2017-02-13] MEDS: AZTREONAM INJ 2,000 MG in SODIUM CHLORIDE 0.9% INJ 100 ML IV SCH ×2 (00:54→08:59)
[2017-02-13] MEDS: ACETAMINOPHEN/HYDROcodone 325 MG/10 MG TAB PO PRN ×3 (00:55→11:43)
[2017-02-13 03:11] LABS: BLOOD, URINE LARGE (NEG); COMMENT (UR) CATH-CULT NOT IND; CULTURE IF INDICATED CATH CULTURE NOT IND; GLUCOSE,URINE NEG (NEG); KETONE, URINE 10 mg/dL (NEG); MUCUS URINE FEW /lpf (OCC); NITRITE,URINE NEG (NEG); PH, URINE 5.5 (5.0-8.5); URINE COLOR YELLOW (YELLW/STRAW)
[2017-02-13] MEDS: RESP: ALBUTEROL 2.5 MG/IPRATROPIUM 0.5 MG NEB (SCH) NEB ×2 (03:32→09:52)
[2017-02-13] MEDS: metroNIDAZOLE 500 MG INJ 100 ML IV SCH ×2 (04:15→11:42)
[2017-02-13] MEDS: methylPREDNISolone SOD SUCC 125 MG/2 ML VIAL IV PUSH SCH ×2 (04:15→11:42)
[2017-02-13] MEDS: MORPHINE SULFATE 4 MG/ML INJ IV PUSH PRN (04:18)
[2017-02-13 06:42] LABS: BICARBONATE 21.3 MEQ/L (21.0-32.0); POTASSIUM 3.5 MEQ/L (3.5-5.1)
[2017-02-13 07:00] LABS: CALCIUM-PROTEIN CORRECTED 7.1 MG/DL (8.5-10.1)
[2017-02-13] MEDS: SODIUM CHLOR 0.9% 1000 ML INJ 1,000 ML IV SCH (07:05)
[2017-02-13 07:26] LABS: HEMATOCRIT 25.9 % (35.0-46.0); MEAN CELL VOLUME 87.8 FL (80.0-100.0); MEAN CORPUSCULAR HEMOGLOBIN 29.9 PG (27.0-34.0); MEAN CORPUSCULAR HGB CONC 34.1 % (32.0-36.0); RED BLOOD COUNT 2.95 MIL/MM3 (4.00-5.30); RED CELL DISTRIBUTION WIDTH 18.3 % (11.6-17.2); WHITE BLOOD COUNT 6.2 TH/MM3 (4.0-11.0)
--- NOTE | 2017-02-13 08:19 | HHI.CCPN ---
Subjective Remarks/Hospital Course Ms. Chávez is a 76-year-old female with past medical history of metastatic urothelial cell carcinoma with metastatic disease to the bone, COPD recently placed on home O2. She had been receiving palliative chemotherapy and radiation ; last chemotherapy was December 2016 and last radiation was one week ago. On the day of admission 02/10/17 home health nurse noted her to have sustained tachycardia with a heart rate of over 150 and patient was sent to [place] emergency department for further workup. Her admission blood work showed hemoglobin 6.9 gm/dl,.with a platelet count of 19,000. WBC count was 4.7 with 15% bands. A CT of the chest PE protocol showed no PE, moderate emphysema, bilateral upper and lower lobe infiltrates indicating pneumonia. Patient was initially placed by the hospitalist on IV Flagyl and azithromycin. Patient was transferred to the ICU today for increasing shortness of breath, and hypoxia and was placed on BiPAP. Chemistry and ABG showed significant metabolic acidosis. ABG on 35% oxygen showed a pH of 7.39/PCO2 17/PO2 50, Oxygen saturation 83%. Her base excess was -14. Patient was already on bicarbonate infusion at 42 ml per hour. I evaluated the patient in ICU. She is tachypneic and in moderate distress on BiPAP. Currently receiving azithromycin and Flagyl , I have added cefepime 2 g IV every 8 hours and single dose of vancomycin to cover for healthcare associated pneumonia in an immunocompromised patient. Blood cultures sputum cultures have been sent. Lactic acid is pending at this time SUBJ 02/13: Patient is breathing comfortably on BiPAP. Lactic acid was 3.8 yesterday patient was given fluid boluses and continued on maintenance fluids. Repeat lactic acid is pending at this time. Antibiotics broadened to cefepime and Flagyl and Levaquin to cover healthcare associated and aspiration pneumonia Objective Vital Signs Date Time Temp Pulse Resp B/P Pulse Ox O2 Delivery O2 Flow Rate FiO2 02/13/17 04:06 98 45 02/13/17 04:00 98.5 100 17 111/64 02/13/17 04:00 Bi-Pap 02/12/17 09:00 4.00 Intake and Output 02/12/17 02/12/17 02/13/17 08:00 16:00 00:00 Intake Total 866 ml 300 ml 2180 ml Output Total 300 ml 600 ml Balance 866 ml 0 ml 1580 ml Result Diagram: 02/12/17 0648 02/13/17 0412 Other Results Microbiology Date/Time Procedure Status Source Growth 02/11/17 12:15 Stool Occult Blood (YUN) - Final Complete Stool Stool HEMOCCULT NEGATIVE Laboratory Tests Test 02/12/17 02/12/17 13:45 17:00 Blood Gas Puncture Site LT RADIAL RT RADIAL Blood Gas Patient Temperature 98.6 98.6 Blood Gas HCO3 10 mmol/L 18 mmol/L (22-26) (22-26) Blood Gas Base Excess -13.8 mmol/L -4.3 mmol/L (-2-2) (-2-2) Blood Gas Oxygen Saturation 83 % (90-100) 96 % (90-100) Arterial Blood pH 7.39 7.54 (7.380-7.420) (7.380-7.420) Arterial Blood Partial 17 mmHg (38-42) 21 mmHg (38-42) Pressure CO2 Arterial Blood Partial 53 mmHg 94 mmHg Pressure O2 (61-120) (61-120) Arterial Blood Oxygen Content 11.9 Vol % 12.0 Vol % (12.0-20.0) (12.0-20.0) Arterial Blood 1.3 % (0-4) 1.8 % (0-4) Carboxyhemoglobin Arterial Blood Methemoglobin 1.0 % (0-2) 1.0 % (0-2) Blood Gas Hemoglobin 10.2 G/DL 8.9 G/DL (12.0-16.0) (12.0-16.0) Oxygen Delivery Device Venti Mask BiPAP Blood Gas Liter Flow 6 L/M Blood Gas Inspired Oxygen 35 % 50 % Blood Gas Ventilator Setting [id number] pulmonary angiogram- No PE, moderate emphysema. Bilateral upper and lower lobe infiltrates Objective Remarks GENERAL: Patient is a frail cachectic elderly female who appears acute and chronically ill, on BiPAP SKIN: Skin pale, cool, dry HEAD: Atraumatic. Normocephalic. EYES: Pupils equal round and reactive. Conjunctiva pale. ENT: Nose without bleeding. BiPAP limits oral cavity exam NECK: Trachea midline. No JVD or lymphadenopathy. Supple CARDIOVASCULAR: Tachycardic S1-S2 normal no murmurs heard RESPIRATORY: Tachypneic. Coarse air entry bilaterally without wheezes or rhonchi GASTROINTESTINAL: Abdomen soft, non-tender, nondistended. No hepato-splenomegaly , or palpable masses. No guarding. MUSCULOSKELETAL: Extremities without clubbing, cyanosis, or edema. NEUROLOGICAL: Awake and alert. Moves all his extremities follows commands no focal deficits Urinary Catheter: Yes Assessment to: Continue A/P Assessment and Plan NEURO: -Minimize sedation, pain control with when necessary morphine RESP: Acute hypoxemic respiratory failure Healthcare associated pneumonia -BiPAP [address] on ventimask -DuoNeb every 6 hours and when necessary -Solu-Medrol 60 every 6 hours -Symbicort 1 puff twice a day. Start Spiriva 1 cap INH daily -See ID section for antibiotics CV: Sinus tachycardia/SIRS Lactic acidosis -Monitor hemodynamics -IV fluid half normal saline at 150 ML per hour s/p NS boluses x2 L 02/12 -Repeat lactic acid today, was 3.8 yesterday GI: -Nothing by mouth except meds. Start heart healthy diet -IV Protonix : Metastatic bladder cancer. -Dr. Burt from oncology following -Monitor renal function closely. Place Purvis catheter. ID: Severe sepsis Healthcare associated pneumonia -IV vancomycin single dose, cefepime 2 g IV every 8 hours. Continue azithromycin and Flagyl. -Follow up on blood urine and sputum culture HEME: Metastatic bladder cancer -oncology Dr. Burt Thrombocytopenia -Monitor CBC, CMP, coags -Thrombocytopenia is chemotherapy-induced ENDO: Hypophosphatemia Hypocalcemia -Electrolyte replacement per protocol. Sliding scale insulin if needed PROPH: -Bilateral lower extremity SCDs. Chemical prophylaxis contraindicated due to thrombocytopenia, anemia. IV Protonix for GI prophylaxis LINES: -Utilize peripheral IVs, central line if needed Nehemiah De La Torre MD Feb 13, 2017 08:19
[2017-02-13 08:20] LABS: REVIEW FLAG FINAL
[2017-02-13 08:21] LABS: PLATELET COUNT 11 TH/MM3 (150-450)
--- NOTE | 2017-02-13 08:56 | RADRPT ---
EXAM DATE/TIME: 02/13/2017 08:30 [place] COMPARISON: CT PULMONARY ANGIOGRAM, February 10, 2017, 19:08. CHEST PA & LAT, December 24, 2016, 17:27. CHEST SING LE AP, February 12, 2017, 9:40. INDICATIONS : Resipratory disease. MEDICAL HISTORY : Chronic obstructive pulmonary disease. Carcinoma, bone. SURGICAL HISTORY : Right-sided port-a-cath placement ENCOUNTER: Initial ACUITY: 4 - 6 days PAIN SCORE: 0/10 LOCATION: Bilateral chest FINDINGS: Portable semiupright view of the chest again demonstrates hyperinflation of the lungs with diffuse re ticular parenchymal densities seen to represent areas of bronchiectasis on prior CT. No evidence of c onfluent airspace disease or pneumothorax. Heart size is normal. There is a stable right-sided central line with the tip overlying the distal SV C. Osseous structures are unremarkable. CONCLUSION: Stable lung exam without evidence of focal airspace consolidation. Indu Reed MD on February 13, 2017 at 8:53 Board Certified Radiologist. This report was verified electronically.
[2017-02-13] MEDS: METOPROLOL TARTRATE 25 MG TAB PO SCH (08:58)
[2017-02-13] MEDS: buPROPion HCL 150 MG SUSTAINED RELEASE TAB PO SCH (08:58)
[2017-02-13] MEDS ORDERED: BUDESONIDE-FORMOTEROL 160/4.5 MCG INHALER INH SCH (09:00)
[2017-02-13] MEDS ORDERED: TIOTROPIUM BROMIDE 18 MCG INH INH SCH (09:00)
[2017-02-13] MEDS ORDERED: FUROSEMIDE 20 MG/2 ML VIAL IV ONE (11:15)
[2017-02-13] MEDS ORDERED: SODIUM CHLOR 0.9% 250 ML INJ 250 ML IV ONE (11:15)
--- NOTE | 2017-02-13 11:18 | PD.ONC.PN ---
Subjective Subjective Remarks Afebrile overnight. Pt resting in bed with partial NRB in place. She states she feels much better today. She denies pain or worsening SOB. Her urine remains crimson colored. Objective Data Date Time Temp Pulse Resp B/P Pulse Ox O2 Delivery O2 Flow Rate FiO2 02/13/17 10:00 109 02/13/17 09:55 96 Partial Rebreather 15.00 02/13/17 08:00 93 02/13/17 04:06 98 45 02/13/17 04:00 98.5 100 17 111/64 90 02/13/17 04:00 90 Bi-Pap 50 02/13/17 01:05 99 50 02/13/17 00:00 96 Bi-Pap 50 02/13/17 00:00 98.1 88 15 110/68 96 02/12/17 22:05 95 50 02/12/17 20:00 98.2 111 27 135/79 98 02/12/17 20:00 98 Bi-Pap 50 02/12/17 19:37 98 BiPAP 50 02/12/17 19:30 98 50 02/12/17 18:00 101 02/12/17 16:00 98.0 112 26 120/70 92 02/12/17 15:30 113 02/12/17 15:26 98 50 02/12/17 14:40 95 100 02/12/17 13:45 115 138/82 87 02/12/17 12:00 97.5 103 18 87/65 89 02/13/17 02/13/17 02/13/17 07:00 15:00 23:00 Intake Total 530 ml Output Total 275 ml Balance 255 ml Result Diagram: 02/13/17 0412 02/13/17 0412 Laboratory Results Laboratory Tests Test 02/12/17 02/12/17 02/12/17 02/13/17 13:45 16:22 17:00 04:12 Blood Gas Puncture Site LT RADIAL RT RADIAL Blood Gas Patient Temperature 98.6 98.6 Blood Gas HCO3 10 mmol/L 18 mmol/L Blood Gas Base Excess -13.8 mmol/L -4.3 mmol/L Blood Gas Oxygen Saturation 83 % 96 % Arterial Blood pH 7.39 7.54 Arterial Blood Partial 17 mmHg 21 mmHg Pressure CO2 Arterial Blood Partial 53 mmHg 94 mmHg Pressure O2 Arterial Blood Oxygen Content 11.9 Vol % 12.0 Vol % Arterial Blood 1.3 % 1.8 % Carboxyhemoglobin Arterial Blood Methemoglobin 1.0 % 1.0 % Blood Gas Hemoglobin 10.2 G/DL 8.9 G/DL Oxygen Delivery Device Venti Mask BiPAP Blood Gas Liter Flow 6 L/M Blood Gas Inspired Oxygen 35 % 50 % Lactic Acid Level 3.4 mmol/L Phosphorus Level 1.0 MG/DL Magnesium Level 1.9 MG/DL Blood Gas Ventilator Setting IPAP12/EPAP5 Urine Color YELLOW Urine Turbidity HAZY Urine pH 5.5 Urine Specific [place] 1.009 Urine Protein 30 mg/dL Urine Glucose (UA) NEG mg/dL Urine Ketones 10 mg/dL Urine Occult Blood LARGE Urine Nitrite NEG Urine Bilirubin NEG Urine Urobilinogen LESS THAN 2.0 MG/DL Urine Leukocyte Esterase NEG Urine RBC 158 /hpf Urine WBC LESS THAN 1 /hpf Urine Mucus FEW /lpf Microscopic Urinalysis Comment CATH-CULT NOT IND White Blood Count 6.2 TH/MM3 Red Blood Count 2.95 MIL/MM3 Hemoglobin 8.8 GM/DL Hematocrit 25.9 % Mean Corpuscular Volume 87.8 FL Mean Corpuscular Hemoglobin 29.9 PG Mean Corpuscular Hemoglobin 34.1 % Concent Red Cell Distribution Width 18.3 % Platelet Count 11 TH/MM3 Mean Platelet Volume 10.8 FL Sodium Level 142 MEQ/L Potassium Level 3.5 MEQ/L Chloride Level 109 MEQ/L Carbon Dioxide Level 21.3 MEQ/L Anion Gap 12 MEQ/L Blood Urea Nitrogen 14 MG/DL Creatinine 0.29 MG/DL Estimat Glomerular Filtration 226 ML/MIN Rate Random Glucose 129 MG/DL Calcium Level 6.4 MG/DL Protein Corrected Calcium 7.1 MG/DL Total Protein 5.7 GM/DL Test 02/13/17 08:39 Lactic Acid Level 2.2 mmol/L Culture Results Microbiology Date/Time Procedure Status Source Growth 02/11/17 12:15 Stool Occult Blood (YUN) - Final Complete Stool Stool HEMOCCULT NEGATIVE 02/12/17 04:53 Urine Culture Received Urine Random Urine Pending 02/12/17 16:15 Aerobic Blood Culture Received Blood Peripheral Pending 02/12/17 16:15 Anaerobic Blood Culture Received Blood Peripheral Pending 02/12/17 16:22 Aerobic Blood Culture Received Blood Peripheral Pending 02/12/17 16:22 Anaerobic Blood Culture Received Blood Peripheral Pending Imaging Studies Last 24 hours Impressions Chest X-Ray 02/13/17 0000 Signed Impressions: Service Date/Time: Monday, February 13, 2017 08:30 - CONCLUSION: Stable lung exam without evidence of focal airspace consolidation. Indu Reed MD Administered Medications Medications (Trade) Dose Ordered Sig/Shay Route PRN Reason Start Time Stop Time Status Last Admin Dose Admin Trazodone HCl (Desyrel) 150 mg HS PO 02/10/17 21:00 02/12/17 19:55 Metoprolol Tartrate (Lopressor) 12.5 mg Q12HR PO 02/10/17 21:00 02/13/17 08:58 Docusate Sodium 100 mg 100 mg BID PRN PO CONSTIPATION 02/10/17 19:15 02/11/17 08:21 Metronidazole 100 ml @ 100 mls/hr Q6H IV 02/12/17 11:00 02/13/17 04:15 Azithromycin/ Sodium Chloride (Zithromax Inj/ NS 250 ml Inj) 250 ml @ 250 mls/hr Q24H IV 02/12/17 12:00 02/12/17 10:45 Pantoprazole Sodium 40 mg 40 mg Q24H IV PUSH 02/12/17 15:15 02/12/17 16:17 Aztreonam/Sodium Chloride (Azactam Inj/NS Inj) 100 ml @ 200 mls/hr Q8H IV 02/12/17 18:00 02/13/17 08:59 Methylprednisolone Sodium Succinate (SoluMEDROL INJ) 60 mg Q6HR IV PUSH 02/13/17 00:00 02/13/17 04:15 Morphine Sulfate 2 mg 2 mg Q3H PRN IV PUSH pain 4-10 02/12/17 17:00 02/13/17 04:18 Sodium Chloride (NS 1000 ml Inj) 1,000 ml @ 75 mls/hr [id number] IV 02/12/17 17:45 02/13/17 07:05 Acetaminophen/ Hydrocodone Bitart ([place] 10-325 Mg) 1 tab Q4H PRN PO PAIN SCALE 4 TO 10 02/12/17 20:15 02/13/17 07:01 Objective Remarks GENERAL: Older female, lying in bed with partial NRB in place. SKIN: Warm and dry. HEAD: Normocephalic. EYES: No injection or drainage. NECK: Supple, trachea midline. CARDIOVASCULAR: Regular rate and rhythm without murmurs. RESPIRATORY: Scattered fine crackles. Partial NRB in place. GASTROINTESTINAL: Abdomen soft, non-tender, nondistended. EXTREMITIES: No cyanosis, or edema. NEUROLOGICAL: Normal speech, A&Ox3. Moving all extremities. Assessment/Plan Assessment 76-year-old female with metastatic urothelial bladder cancer. She has been receiving palliative carboplatin and gemcitabine as well as palliative radiation to her bony metastases. She also received 1 dose of Nivolumab as palliative immunotherapy. Plan The patient was transferred yesterday from the 7th floor to the ICU. She was placed on bipap. Her chest CT was reviewed and she was found to have some honey- comb appearance. She is currently tolerating a partial NRB. The drawing instructor increased her steroids from 60mg BID to 60mg Q6H. Unfortunately this has not affected her platelets as they are 11K today. She continues to have bleeding d/ t her urothelial carcinoma. Her urine is the color of red wine. We will transfuse 1 unit of platelets today followed by 20mg of lasix due to her pulmonary compromise. We will check a CBC in the am. Attending Statement went to see patient and she one hour before visit. seen by physician household assistant earlier and was in fact doing well at that time and confirmed by nursing staff. Tawnya Ruiz Feb 13, 2017 11:18 Christopher Arrington MD Feb 13, 2017 15:15
[2017-02-13] MEDS: AZITHROMYCIN INJ 500 MG in SODIUM CHLOR 0.9% 250 ML INJ 250 ML IV SCH (11:41)
--- NOTE | 2017-02-13 12:56 | HHI.PR ---
Subjective Remarks Patient is breathing better on partial nonrebreather Patient still has mild hematuria but less than before No pain No shortness of breath No palpitations No nausea vomiting His more energy than yesterday Review of system for 12 point system otherwise unremarkable Objective Objective Results - Vital Signs Date Time Temp Pulse Resp B/P Pulse Ox O2 Delivery O2 Flow Rate FiO2 02/13/17 12:00 94 Partial Non-Rebreather 02/13/17 12:00 97.8 109 14 120/72 94 02/13/17 12:00 109 02/13/17 10:00 109 02/13/17 09:55 96 Partial Rebreather 15.00 02/13/17 08:00 97.5 93 14 136/77 95 02/13/17 08:00 95 Bi-Pap 50 02/13/17 08:00 93 02/13/17 04:06 98 45 02/13/17 04:00 98.5 100 17 111/64 90 02/13/17 04:00 90 Bi-Pap 50 02/13/17 01:05 99 50 02/13/17 00:00 96 Bi-Pap 50 02/13/17 00:00 98.1 88 15 110/68 96 02/12/17 22:05 95 50 02/12/17 20:00 98.2 111 27 135/79 98 02/12/17 20:00 98 Bi-Pap 50 02/12/17 19:37 98 BiPAP 50 02/12/17 19:30 98 50 02/12/17 18:00 101 02/12/17 16:00 98.0 112 26 120/70 92 02/12/17 15:30 113 02/12/17 15:26 98 50 02/12/17 14:40 95 100 02/12/17 13:45 115 138/82 87 I/O 02/12/17 02/12/17 02/12/17 02/13/17 02/13/17 02/13/17 07:00 15:00 23:00 07:00 15:00 23:00 Intake Total 866 ml 300 ml 2180 ml 530 ml Output Total 300 ml 600 ml 275 ml Balance 866 ml 0 ml 1580 ml 255 ml Intake Oral 240 ml 300 ml 480 ml 100 ml IV Total 626 ml 1700 ml 430 ml Output Urine Total 300 ml 600 ml 275 ml # Voids 3 # Bowel Movements 0 0 Result Diagram: 02/13/17 0412 02/13/17 0412 Imaging Last Impressions Chest X-Ray 02/10/17 0000 Signed Impressions: Service Date/Time: January 16:09 - CONCLUSION: 1. Stable increased interstitial markings bilaterally. 2. No acute focal alveolar consolidation or pulmonary edema. 3. Mild degenerative changes and scoliosis of the thoracolumbar spine. Tez Baldwin MD Other Results Laboratory Tests Test 02/12/17 02/12/17 02/12/17 02/13/17 13:45 16:22 17:00 04:12 Blood Gas Puncture Site LT RADIAL RT RADIAL Blood Gas Patient Temperature 98.6 98.6 Blood Gas HCO3 10 18 Blood Gas Base Excess -13.8 -4.3 Blood Gas Oxygen Saturation 83 96 Arterial Blood pH 7.39 7.54 Arterial Blood Partial 17 21 Pressure CO2 Arterial Blood Partial 53 94 Pressure O2 Arterial Blood Oxygen Content 11.9 12.0 Arterial Blood 1.3 1.8 Carboxyhemoglobin Arterial Blood Methemoglobin 1.0 1.0 Blood Gas Hemoglobin 10.2 8.9 Oxygen Delivery Device Venti Mask BiPAP Blood Gas Liter Flow 6 Blood Gas Inspired Oxygen 35 50 Lactic Acid Level 3.4 Phosphorus Level 1.0 Magnesium Level 1.9 Blood Gas Ventilator Setting IPAP12/EPAP5 Urine Color YELLOW Urine Turbidity HAZY Urine pH 5.5 Urine Specific [place] 1.009 Urine Protein 30 Urine Glucose (UA) NEG Urine Ketones 10 Urine Occult Blood LARGE Urine Nitrite NEG Urine Bilirubin NEG Urine Urobilinogen LESS THAN 2.0 Urine Leukocyte Esterase NEG Urine RBC 158 Urine WBC LESS THAN 1 Urine Mucus FEW Microscopic Urinalysis Comment CATH-CULT NOT IND White Blood Count 6.2 Red Blood Count 2.95 Hemoglobin 8.8 Hematocrit 25.9 Mean Corpuscular Volume 87.8 Mean Corpuscular Hemoglobin 29.9 Mean Corpuscular Hemoglobin 34.1 Concent Red Cell Distribution Width 18.3 Platelet Count 11 Mean Platelet Volume 10.8 Sodium Level 142 Potassium Level 3.5 Chloride Level 109 Carbon Dioxide Level 21.3 Anion Gap 12 Blood Urea Nitrogen 14 Creatinine 0.29 Estimat Glomerular Filtration 226 Rate Random Glucose 129 Calcium Level 6.4 Protein Corrected Calcium 7.1 Total Protein 5.7 Test 02/13/17 02/13/17 08:39 11:20 Lactic Acid Level 2.2 Blood Bank Comment Date/Time Procedure Status Source Growth 02/12/17 16:22 Aerobic Blood Culture - Preliminary Resulted Blood Peripheral NO GROWTH IN 1 DAY 02/12/17 16:22 Anaerobic Blood Culture - Preliminary Resulted Blood Peripheral NO GROWTH IN 1 DAY 02/12/17 04:53 Urine Culture - Final Complete Urine Random Urine <10,000 CFU/ML MIXED GRAM POSITIVE FL... 02/11/17 12:15 Stool Occult Blood ([facility]) - Final Complete Stool Stool HEMOCCULT NEGATIVE Physical Exam Physical Exam GENERAL: This is a frail elderly female. SKIN: Skin pale, cool, dry HEAD: Atraumatic. Normocephalic. No temporal or scalp tenderness. EYES: Pupils equal round and reactive. Extraocular motions intact. No scleral icterus. No injection or drainage. Conjunctiva pale. ENT: Nose without bleeding, purulent drainage or septal hematoma. Throat without erythema, tonsillar hypertrophy or exudate. Uvula midline. Airway patent. NECK: Trachea midline. No JVD or lymphadenopathy. Supple, nontender, no meningeal signs. CARDIOVASCULAR: S1, S1, tachycardic, regular rate and rhythm without murmurs, gallops, or rubs. RESPIRATORY: Some decreased breath sounds bibasally with occasional Rales. No wheezes, or rhonchi. GASTROINTESTINAL: Abdomen soft, non-tender, nondistended. No hepato-splenomegaly , or palpable masses. No guarding. MUSCULOSKELETAL: Extremities without clubbing, cyanosis, or edema. No joint tenderness, effusion, or edema noted. No calf tenderness. Negative Homans sign bilaterally. NEUROLOGICAL: Awake and alert. Cranial nerves II through XII intact. Motor and sensory grossly within normal limits. Five out of 5 muscle strength in all muscle groups. Normal speech. 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 Last chemotherapy was December 2015. Last radiation was last week. Presented to the emergency with weakness and increased heart rate. She was noted tachycardic but her home health care nurse, had just recently been started on oxygen at home.. In the emergency room, patient was evaluated and was noted severely anemic with hemoglobin of 6.9, hematocrit 19.8, platelets of 19. Respiratory failure -Was on BiPAP now on partial nonrebreather -Breathing treatments -Steroid -Appreciate photo technician input Symptomatic anemia, etiology unclear, status post radiation. Last chemotherapy was 2016. Discuss with Dr. Burt, possibly induce her radiation. We will rule out other causes of anemia. 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 Indicates she saw Dr. Huizar recently, had echocardiogram. Likely cause of tachycardia due to anemia. Resumed beta tamika, patient not sure what she takes. Lopressor 12.5 mg by mouth twice a day. -Continuous cardiac telemetry. Improving Hypoxia, possible COPD/pneumonia Continue to monitor her sats. Continue with oxygen to keep sats greater than 92% DuoNeb's as needed for any wheezing -CT of the chest report reviewed likely aspiration plan for antibiotics -No fever no leukocytosis. Will monitor. -Plan for chest x-ray today. -Continue antibiotic Thrombocytopenia, platelets 11, status post transfusion -Repeat CBC in the morning Monitor for bleeding -Defer further treatment per hematology Metastatic bladder cancer, was on chemotherapy. Completed palliative radiation Dr. Burt following patient Metabolic acidosis -Improved -Lactic acidosis improving Labs reviewed in detail Hypocalcemia with a start supplements, plans for magnesium level phosphorus level and PTH level Home medications reviewed, initiated as indicated For DVT prophylaxis, avoid anticoagulation, use SCDs Plan of care has been discussed with the patient and registered nurse. Discussed with photo technician Further management of the patient will be dependent on the hospital course Condition guarded Fani Wright MD Feb 13, 2017 12:56
--- NOTE | 2017-03-19 21:30 | HHI.DS ---
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 Indu Reed MD CT Angiography 02/10/17 0000 Signed Impressions: Service Date/Time: January 19:08 - CONCLUSION: 1. Negative for pulmonary embolus. 2. Patchy subsegmental airspace disease in the posterior aspect of both upper lobes and both lower lobes most characteristic of pneumonia or aspiration. 3. Moderate centrilobular emphysema. 4. Widespread bone sclerotic lesions characteristic of metastatic bone disease. 5. Stable 5 mm nodule right lower lobe medially and soft tissue density at the cardiophrenic angle. Terry Gaytan MD Hospital Course This is a 76-year-old female with history of metastatic bladder cancer with bony metastasis to the left hip, patient is currently on palliative radiation. Last treatment was a week ago. She had been on palliative systemic therapy however her disease progressed and she was changed to second line Nivolumab which she did not tolerate. Her last treatment was in December. She had been receiving radiation treatment to the left hip, completed 9 treatments but was unable to complete the final day because she was feeling too weak. On that date , she was actually seen in the emergency room (February 02). Her lab work was unremarkable.. She was found positive for a UTI and was treated with Cipro for 3 days. Most recently, she was started on oxygen at home. Today she presented to the emergency room after she was noted to have an elevated heart rate by her home health care nurse. She also complained of feeling weak and short of breath. Denies any chest pain, no fever, no chills. She also noted that her urine started changing color, it was pink tinged yesterday and today it looks like Torsten-Aid. She denies any blood in the stool. No abdominal pain, no diarrhea. She was actually seen on December 24, 2016 with possible A flutter with RVR, however at that time she did not want to wait for cardiology evaluation and echo, therefore was discharged home on Cardizem PO and instructed to follow up as OP. Indicates she did follow up with her whiskey regauger ,Dr. Huizar, and was put on a beta tamika and had an echo completed. Patient was evaluated in the emergency room, she was noted tachycardic, EKG shows sinus tach heart rate 102. Heart rate has been fluctuating going all the way up to 150. Blood pressure has been stable. She was noted pale. CBC was remarkable for significant anemia, hemoglobin 6.9, hematocrit 19.8. She was also noted thrombocytopenic with platelet count of 19. Urinalysis is currently pending. BMP was unremarkable other than elevated alkaline phosphatase of 440 and potassium of 3.2. Chest x-ray showed increased interstitial markings bilaterally, no acute focal alveolar consolidation or pulmonary edema. 2 units of blood have been ordered. Patient was noted to desat to 75% with minimal activity. She has oxygen at 2 L and his sat 95% while at rest. Dr. Burt has been consulted and evaluated patient. Case has been discussed with him. Patient will be undergoing anemia workup, it is possible that the anemia was due to radiation as the chemotherapy was in December 2016. Patient appears comfortable at this time, she denies any significant pain. She denies any blood in the stool, denies any history of gastric ulcers, has not noticed any hematemesis, no hematochezia. Her appetite has been stable, she has been eating fairly well. No significant weight loss. Patient was admitted for further evaluation and treatment. 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 Last chemotherapy was December 2015. Last radiation was last week. Presented to the emergency with weakness and increased heart rate. She was noted tachycardic but her home health care nurse, had just recently been started on oxygen at home.. In the emergency room, patient was evaluated and was noted severely anemic with hemoglobin of 6.9, hematocrit 19.8, platelets of 19. on 02/12 went into respiratory failure, required transfer to ICU with consultation to critical care -Was on BiPAP now on partial nonrebreather -Breathing treatments -Steroid -CCM consulted. Continue with oxygen to keep sats greater than 92% -CT of the chest report reviewed likely aspiration plan for antibiotics -Given antibiotic Symptomatic anemia, etiology unclear, status post radiation. Last chemotherapy was 2016. Discussed with Dr. Burt, possibly induce her radiation. Rule out other causes of anemia. - status post 2 units of packed cells have been given, continued to follow H&H Monitored platelets,did require transfusion. -Anemia workup done -Negative stools for occult blood Tachycardia, narrow complex tach, possibly a flutter. Indicated she saw Dr. Huizar recently, had echocardiogram. Likely cause of tachycardia due to anemia. Resumed beta tamika, patient not sure what she takes. Lopressor 12.5 mg by mouth twice a day. -Continuous cardiac telemetry. -HR improved Thrombocytopenia, platelets 11, status post transfusion -CBC was followed. Crimson colored urine in [place] Metastatic bladder cancer, was on chemotherapy. Completed palliative radiation Dr. Burt following patient Metabolic acidosis -Improved Hypocalcemia -started on supplements, plans for magnesium level phosphorus level and PTH level Patient's condition remained guarded She was transferred out of ICU back to seventh floor. She was on a nonrebreather Unfortunately, patient . Pt Condition on Discharge: Deteriorating Dianne Champion Mar 19, 2017 21:30
== END 2017-02-13 14:15 | disposition expired | DRG 808 ==
LOC: NEPE 15:33 → NEDA 18:11 → HOCB 21:19 → HIMW 02-12 15:20
PROVIDERS: ADMIT Specialist; ATTEND Specialist
PROC: 30233N1 Transfusion of Nonautologous Red Blood Cells into Peripheral Vein, Percutaneous Approach (ICD-10-PCS; 2017-02-10)
PROC: 30233R1 Transfusion of Nonautologous Platelets into Peripheral Vein, Percutaneous Approach (ICD-10-PCS; principal; 2017-02-11)
DX: D61.818 Other pancytopenia (principal); A41.9 Sepsis, unspecified organism; J96.01 Acute respiratory failure with hypoxia; J69.0 Pneumonitis due to inhalation of food and vomit; R65.20 Severe sepsis without septic shock; E87.2 Acidosis; I48.92 Unspecified atrial flutter; C77.2 Secondary and unspecified malignant neoplasm of intra-abdominal lymph nodes; I47.1 Supraventricular tachycardia; J44.0 Chronic obstructive pulmonary disease with (acute) lower respiratory infection; C78.7 Secondary malignant neoplasm of liver and intrahepatic bile duct; C79.51 Secondary malignant neoplasm of bone; N13.30 Unspecified hydronephrosis; J44.1 Chronic obstructive pulmonary disease with (acute) exacerbation; E78.5 Hyperlipidemia, unspecified; Z66 Do not resuscitate; C67.9 Malignant neoplasm of bladder, unspecified; E83.39 Other disorders of phosphorus metabolism; E83.51 Hypocalcemia; R31.9 Hematuria, unspecified; Z87.891 Personal history of nicotine dependence; Z99.81 Dependence on supplemental oxygen
CPT/HCPCS: 36430; 36600; 71010; 71275; 80048; 80053; 81001; 82272; 82728; 82805; 83010; 83540; 83550; 83605; 83615; 83735; 84100; 84155; 85007; 85027; 85384; 85610; 85730; 86850; 86900; 86901; 86920; 87040; 87086; 93005; 94002; 94003; 94640; 94664; 96360; C9113; J0131; J0456; J1885; J1940; J2270; J2930; J3370; J7030; J7040; J7050; J7512; P9016; P9035; P9037; Q9967